=== PATIENT | female | born 1945 | race Caucasian/White ===

== ENCOUNTER 2018-12-04 09:39 | Inpatient (IN) | payer MEDICARE, OTHER ==
[~2018-12-04] VITALS: Ht 167.6 cm; Wt 59.7 kg
[2018-12-04] MEDS ORDERED: PANTOPRAZOLE 40 MG INJ IV STA (10:30)
[2018-12-04] MEDS ORDERED: SOD CHLORIDE 0.9% 0 ML IV ONE (12:18)
--- NOTE | 2018-12-04 12:22 | ERD ---
ER Documentation Chief Complaint Chief Complaint Sent by Dr. Rivera for admission for anemia and lab work HPI 73-year-old female referred in from her GI physician for evaluation of a low hemoglobin. States that over the last 6 months she has had a significant drop in her hemoglobin noted on blood work. She has no significant symptoms other than feeling "exhausted." Patient reports no chest pain or shortness of breath or palpitations. She reports no lightheadedness or syncope. She reports no abdominal pain, melena or hematemesis. ROS All systems reviewed and are negative except as per history of present illness. Allergies Allergies: Coded Allergies: No Known Allergy (Unverified , 12/04/18) PMhx/Soc History of Surgery: Yes () Anesthesia Reaction: No Hx Neurological Disorder: No Hx Respiratory Disorders: Yes (COPD) Hx Cardiac Disorders: Yes (HTN, HDL) Hx Psychiatric Problems: No Hx Miscellaneous Medical Probl: Yes (Anemia) Hx Alcohol Use: No Hx Substance Use: No Hx Tobacco Use: Yes Smoking Status: Current some day smoker FmHx Noncontributory for chief complaint Physical Exam Vitals Vital Signs Date Temp Pulse Resp B/P (MAP) Pulse Ox O2 O2 Flow FiO2 Time Delivery Rate 12/04/18 94 16 124/62 94 Nasal 2.0 12:08 (82) Cannula 12/04/18 98.2 102 18 127/81 94 09:45 (96) Physical Exam GENERAL: Pale, elderly. Female in no distress HEENT: Pupils equal, round, and reactive to light. EOMI. There is no scleral icterus. NECK: C-spine is soft and supple, there is no meningismus. There is no cervical lymphadenopathy. LUNGS: Clear to auscultation bilaterally. There are no rales, wheezes or rhonchi. HEART: Regular rate and rhythm, no murmurs, clicks, rubs or gallops. ABDOMEN: Soft, non-tender, non-distended. There are bowel sounds in all four quadrants. No rebound or guarding. EXTREMITIES: There is no peripheral cyanosis or edema. No focal swelling or erythema. NEURO: The patient moves all four extremities with 5/5 strength. Cranial nerves II - XII are intact. Normal gait. Alert and oriented SKIN: There is no apparent rash or petechiae. HEME/LYMPHATIC: There is no evidence of excessive bruising or lymphedema. PSYCHIATRIC: The patient does not appear anxious or depressed. Result Diagram: 12/04/18 1036 12/04/18 1036 Results 24 hrs Laboratory Tests Test 12/04/18 10:36 White Blood Count 7.9 10^3/ul Red Blood Count 4.06 10^6/ul Hemoglobin 7.4 g/dl Hematocrit 26.6 % Mean Corpuscular Volume 65.5 fl Mean Corpuscular Hemoglobin 18.2 pg Mean Corpuscular Hemoglobin Concent 27.8 g/dl Red Cell Distribution Width 20.6 % Platelet Count 426 10^3/UL Mean Platelet Volume 9.1 fl Immature Granulocytes % 0.500 % Neutrophils % 84.2 % Lymphocytes % 9.1 % Monocytes % 4.2 % Eosinophils % 1.7 % Basophils % 0.3 % Nucleated Red Blood Cells % 0.0 /100WBC Immature Granulocytes # 0.040 10^3/ul Neutrophils # 6.6 10^3/ul Lymphocytes # 0.7 10^3/ul Monocytes # 0.3 10^3/ul Eosinophils # 0.1 10^3/ul Basophils # 0.0 10^3/ul Nucleated Red Blood Cells # 0.0 10^3/ul Prothrombin Time 12.2 Sec Prothrombin Time Ratio 1.0 INR International Normalized Ratio 0.89 Activated Partial Thromboplast Time 25.2 Sec Sodium Level 143 mmol/L Potassium Level 3.9 mmol/L Chloride Level 104 mmol/L Carbon Dioxide Level 28 mmol/L Anion Gap 11 Blood Urea Nitrogen 13 mg/dl Creatinine 0.62 mg/dl Est Glomerular Filtrat Rate mL/min mL/min Glucose Level 146 mg/dl Calcium Level 8.7 mg/dl Total Bilirubin 0.4 mg/dl Direct Bilirubin 0.00 mg/dl Indirect Bilirubin 0.4 mg/dl Aspartate Amino Transf (AST/SGOT) 19 IU/L Alanine Aminotransferase (ALT/SGPT) 28 IU/L Alkaline Phosphatase 79 IU/L Troponin I < 0.012 ng/ml Total Protein 6.7 g/dl Albumin 3.7 g/dl Globulin 3.00 g/dl Albumin/Globulin Ratio 1.23 Current Medications Medications Dose Sig/Linda Start Time Status Last (Trade) Ordered Route PRN Stop Time Admin Dose Reason Admin 40 mg ONCE STAT 12/04/18 DC 12/04/18 Pantoprazole IV 10:30 11:51 (Protonix 12/04/18 10:31 Iv) Magnesium 300 ml ONCE ONCE 12/04/18 Citrate PO 12:30 (Citroma) 12/04/18 12:31 Sodium 0 ml @ 0 Q0M ONCE 12/04/18 DC Chloride mls/hr IV 12:18 12/04/18 12:19 Procedures/MDM Patient was taken to a room, seen and evaluated. Comfort measures were initiated. Diagnostic tests were ordered and reviewed. 3 LEAD RHYTHM STRIP: Normal sinus rhythm without ectopy EK lead EKG reviewed by myself: Normal Sinus Rhythm Normal Head Waters and intervals No ST elevation, depression, or T wave inversion Impression: Normal EKG RADIOLOGY: Reviewed with the radiologist CONSULTATION: Dr. Steele was notified for admission. Dr. Rivera was consulted for GI REEVALUATION: 1220: Diagnostic tests were appreciated discussed with the patien t. Arrangements were made for admission of the hospital. Orders were initiated per Dr. Rivera for preparation for colonoscopy and endoscopy tomorrow MEDICAL DECISION MAKIN-year-old female presents to the emergency department with what appears to be a chronic occult GI bleed. Patient is a significant anemia requiring transfusion at this time given her significantly low hemoglobin. She is not hemodynamically unstable and does not require emergent transfusion. Patient will be admitted to the hospital for transfusion, endoscopy and colonoscopy and monitoring of her hemoglobin. Departure Diagnosis: Primary Impression: Anemia Condition: SETH Brunson Dec 04, 2018 12:22
[2018-12-04] MEDS ORDERED: MAGNESIUM CITRATE 300 ML BTL PO ONE ×2 (12:30→13:00)
[2018-12-04] MEDS ORDERED: ONDANSETRON 4 MG INJ IV PRN ×2 (12:30→14:00)
[2018-12-04] MEDS ORDERED: ACETAMINOPHEN 325 MG TAB PO PRN ×2 (12:30→14:00)
[2018-12-04] MEDS ORDERED: VARE1TAB20 PO (12:38)
[2018-12-04] MEDS ORDERED: ROFL500T6 PO (12:39)
[2018-12-04] MEDS ORDERED: CLON0.5T14 PO (12:39)
[2018-12-04] MEDS ORDERED: FLUO40CA PO (12:40)
[2018-12-04] MEDS ORDERED: MONT10TA24 PO (12:40)
[2018-12-04] MEDS ORDERED: LEVO175T38 PO (12:40)
[2018-12-04] MEDS ORDERED: LOSA25TA12 PO (12:41)
[2018-12-04] MEDS ORDERED: EZET10TA31 PO (12:41)
[2018-12-04] MEDS ORDERED: CETI10TA34 PO (12:41)
[2018-12-04] MEDS ORDERED: ATOR-2 PO (12:42)
[2018-12-04] MEDS ORDERED: CYAN500T46 PO (12:45)
[2018-12-04] MEDS ORDERED: ALBU18HF INHALATION (12:46)
[2018-12-04] MEDS ORDERED: ADV50050 INHALATION (12:46)
[2018-12-04] MEDS ORDERED: GABA300C16 PO (12:49)
[2018-12-04] MEDS ORDERED: PRAM0.25 PO (12:49)
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
[2018-12-04] MEDS ORDERED: ZOLPIDEM 5 MG TAB PO PRN (14:00)
[2018-12-04] MEDS ORDERED: LORAZEPAM 0.5 MG TAB PO PRN (14:00)
[2018-12-04] MEDS ORDERED: NACL 0.9% 3 ML SYG IV SCH (14:00)
[2018-12-04] MEDS ORDERED: NITROGLYCERIN (SL) 0.4 MG TAB SL PRN (14:00)
[2018-12-04] MEDS ORDERED: ALBUTEROL 0.083% (NEB) 2.5 MG/3 ML AMP HHN PRN (14:00)
[2018-12-04] MEDS: LACTULOSE 30ML CUP PO SCH ×3 (15:32→23:04)
--- NOTE | 2018-12-04 18:03 | HP ---
Date/Time of Note Date/Time of Note DATE: 12/04/18 TIME: 17:53 Assessment/Plan VTE Prophylaxis SCD applied (from Nsg): Yes SCD contraindicated: low risk/ambulating Pharmacological prophylaxis: NA/contraindicated Pharm contraindication: bleeding Lines/Catheters IV Catheter Type (from Nrsg): Saline Lock Assessment/Plan Problems: (1) Anemia Status: Acute Comment: Low MCV so likely Fe def. Acuity is concerning for GIB. Transfuse and GI to perform upper and lower endoscopies tomorrow as per plan. (2) Hypothyroidism due to Sylwia's thyroiditis Status: Chronic Comment: Cont. LT4 daily (3) Allergic rhinitis Status: Chronic Comment: Cont. allergy therapy daily (4) Chronic obstructive pulmonary disease Status: Chronic Comment: Cont. combination steroid/LABA daily and then inhaled beta-2 agonist prn (5) Moderate persistent asthma, uncomplicated Status: Chronic Comment: no meds at this time. Monitor glucose in house w/ Novolog Alg 1 ISS (6) Type 2 diabetes mellitus with other specified complication Status: Chronic Comment: no meds at this time. Monitor glucose in house w/ Novolog Alg 1 ISS (7) Asymptomatic microscopic hematuria Status: Chronic Comment: Fully evaluated by urology. S/p cystoscopy. No evidence of disease. (8) Essential tremor Status: Chronic Comment: Cont. pramipexole, gabapentin, and clonazepam (9) Pure hypercholesterolemia Status: Chronic Comment: Cont. statin and ezetimibe (10) Recurrent major depressive disorder in partial remission Status: Chronic Comment: Cont. fluoxetine (11) Obstructive sleep apnea Status: Chronic Comment: CPAP at night. Result Diagram: 12/04/18 1036 12/04/18 1036 Results 24hrs Laboratory Tests Test 12/04/18 10:36 White Blood Count 7.9 Red Blood Count 4.06 L Hemoglobin 7.4 L Hematocrit 26.6 L Mean Corpuscular Volume 65.5 L Mean Corpuscular Hemoglobin 18.2 L Mean Corpuscular Hemoglobin Concent 27.8 L Red Cell Distribution Width 20.6 H Platelet Count 426 H Mean Platelet Volume 9.1 Immature Granulocytes % 0.500 H Neutrophils % 84.2 H Lymphocytes % 9.1 L Monocytes % 4.2 Eosinophils % 1.7 Basophils % 0.3 Nucleated Red Blood Cells % 0.0 Immature Granulocytes # 0.040 H Neutrophils # 6.6 Lymphocytes # 0.7 L Monocytes # 0.3 Eosinophils # 0.1 Basophils # 0.0 Nucleated Red Blood Cells # 0.0 Prothrombin Time 12.2 Prothrombin Time Ratio 1.0 INR International Normalized Ratio 0.89 Activated Partial Thromboplast Time 25.2 Sodium Level 143 Potassium Level 3.9 Chloride Level 104 Carbon Dioxide Level 28 Anion Gap 11 Blood Urea Nitrogen 13 Creatinine 0.62 Est Glomerular Filtrat Rate mL/min Glucose Level 146 Calcium Level 8.7 Total Bilirubin 0.4 Direct Bilirubin 0.00 Indirect Bilirubin 0.4 Aspartate Amino Transf (AST/SGOT) 19 Alanine Aminotransferase (ALT/SGPT) 28 Alkaline Phosphatase 79 Troponin I < 0.012 Total Protein 6.7 Albumin 3.7 Globulin 3.00 Albumin/Globulin Ratio 1.23 HPI/ROS Admit Date/Time Admit Date/Time 12/04/2018 @ 1400 Hx of Present Illness 73 y/o C F w/ h/o COPD/asthma, hypothyroidism, hyperlipidemia, diet-controlled T2DM, asymptomatic microscopic hematuria, essential tremor, depression, and DANISH w/ normal lab evaluation in office 5 m. ago returned following a visit to [facility]. Labs were ordered for pulmonary tests and these included CBC. Hgb found to be 7. Pt. asymptomatic other than her chronic SOB. Further questioning does reveal some JOYA. Denies melena or hematochezia. Pt. referred to GI but they felt pt. should have transfusion and in-house endoscopies. Admit today for transfusion; endoscopies tomorrow. ROS Constitutional: no complaints Eyes: no complaints ENT: no complaints Respiratory: cough, shortness of breath, wheezing Cardiovascular: lightheadedness Gastrointestinal: no complaints Genitourinary: no complaints Musculoskeletal: no complaints Skin: no complaints Neurologic: other (tremor) PMH/Family/Social Past Medical History Medical History: diabetes, high cholesterol, hypothyroid, other (COPD/asthma, asymptomatic microscopic hematuria, essential tremor, depression, and DANISH) Medications Current Medications Ondansetron HCl (Zofran Inj) 4 mg ER BRIDGE PRN IV NAUSEA/VOMITING; Start 12/04/18 at 12:30; Stop 12/05/18 at 12:29 Acetaminophen (Tylenol Tab) 650 mg ER BRIDGE PRN PO .MILD PAIN 1-3 OR TEMP; Start 12/04/18 at 12:30; Stop 12/05/18 at 12:29 Atorvastatin Calcium (Lipitor) 80 mg QHS PO ; Start 12/04/18 at 21:00 Clonazepam (Klonopin) 0.5 mg QHS PO ; Start 12/04/18 at 21:00 EZETIMIBE (Zetia) 10 mg HS PO ; Start 12/04/18 at 21:00 Fluoxetine HCl (Prozac) 40 mg DAILY PO ; Start 12/05/18 at 09:00 Gabapentin (Neurontin) 300 mg BID PO ; Start 12/04/18 at 21:00 Levothyroxine Sodium (Synthroid) 175 mcg BEFORE BREAKFAST PO ; Start 12/05/18 at 07:00 Losartan Potassium (Cozaar) 25 mg DAILY PO ; Start 12/05/18 at 09:00 Montelukast Sodium (Singulair) 10 mg QHS PO ; Start 12/04/18 at 21:00 Pramipexole (Mirapex) 0.25 mg HS PO ; Start 12/04/18 at 21:00 Roflumilast (Daliresp) 500 mcg DAILY PO ; Start 12/05/18 at 09:00 Albuterol (Proventil 0.083% (Neb)) 2.5 mg Q4H RESP THERAPY PRN HHN SHORTNESS OF BREATH; Start 12/04/18 at 14:00 Loratadine (Claritin) 10 mg DAILY PO ; Start 12/05/18 at 09:00 Fluticasone/ Vilanterol (Breo Ellipta 200-25 Mcg Inh) 1 inh DAILY INH ; Start 12/05/18 at 09:00 Potassium Chloride/Dextrose/ Sod Cl 1,000 ml @ 100 mls/hr Q10H IV ; Start 12/04/18 at 13:50 IV Flush (NS 3 ml) 3 ml PER PROTOCOL IV ; Start 12/04/18 at 14:00 Lorazepam (Ativan) 0.5 mg Q8H PRN PO .ANXIETY; Start 12/04/18 at 14:00 Ondansetron HCl (Zofran Inj) 4 mg Q6H PRN IV NAUSEA/VOMITING; Start 12/04/18 at 14:00 Nitroglycerin (Nitroglycerin (Sl Tab) 0.4 Mg) 1 tab Q5M PRN SL .CHEST PAIN; Start 12/04/18 at 14:00 Acetaminophen (Tylenol Tab) 650 mg Q6H PRN PO .PAIN 1-3 OR TEMP; Start 12/04/18 at 14:00 Zolpidem Tartrate (Ambien) 5 mg QHS PRN PO .INSOMNIA; Start 12/04/18 at 14:00 Pantoprazole (Protonix Iv) 40 mg DAILY@06 IV ; Start 12/05/18 at 06:00 Insulin Aspart (Novolog Insulin Pen) NOVOLOG *MILD* ALGORITHM WITH MEALS BEDTIME SC ; Start 12/04/18 at 18:00 Lactulose (Enulose) 20 gm Q3 PO Last administered on 12/04/18at 15:32; Admin Dose 20 GM; Start 12/04/18 at 15:00; Stop 12/05/18 at 06:00 Cyanocobalamin (Vitamin B12) 1,000 mcg DAILY PO ; Start 12/05/18 at 09:00 Coded Allergies: No Known Allergy (Unverified , 12/04/18) Past Surgical History Past Surgical Hx: other (c-sect, T&A) Family History Significant Family History: heart disease, cancer (breast), diabetes Social History joanne Gambino, 9th [facility] [employer] [facility] [employer], 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, , 7 children Alcohol Use: none Smoking Status: Former smoker Drug Use: none Exam/Review of Systems Vital Signs Vitals VS - Last 72 Hours, by Label Date Temp Pulse Resp B/P (MAP) Pulse Ox O2 O2 Flow FiO2 Time Delivery Rate 12/04/18 98.4 89 20 121/82 95 Room Air 17:25 (95) 12/04/18 91 142/68 98 Nasal 2.0 15:20 (92) Cannula 12/04/18 94 16 124/62 94 Nasal 2.0 12:08 (82) Cannula 12/04/18 98.2 102 18 127/81 94 09:45 (96) Vital Signs Date Temp Pulse Resp B/P (MAP) Pulse Ox O2 O2 Flow FiO2 Time Delivery Rate 12/04/18 98.4 89 20 121/82 95 Room Air 17:25 (95) 12/04/18 2.0 15:20 Exam Constitutional: alert, oriented, frail Psych: no complaints, nl mood/affect Eyes: nl conjunctiva, EOMI, nl lids, nl sclera, PERRL ENMT: nl external ears & nose, nl lips & teeth, mucosa pink and moist Neck: supple, non-tender; No bruits, No masses, No thyromegaly Respiratory: wheezing Cardiovascular: regular rate and rhythm, nl pulses; No edema, No murmurs/extra sounds, No rub Gastrointestinal: soft, nl liver, spleen, non-tender, bowel sounds; No mass, No rebound or guarding Musculoskeletal: nl extremities to inspection Extremities: normal pulses; No cyanosis, No clubbing, No edema Neurological: [employer] II[employer] intact, nl mental status, nl speech, nl strength, other (tremulous) ABIMAEL MARTINEZ MD Dec 04, 2018 18:03
[2018-12-04] MEDS: PRAMIPEXOLE 0.25 MG TAB PO SCH (21:00)
[2018-12-04 21:52] VITALS: PULSE 91
[2018-12-04 22:00] VITALS: BP 155/66; PULSE 78; RESP 16
[2018-12-04 22:08] VITALS: Ht 167.6 cm; Wt 59.7 kg
[2018-12-04] MEDS: INSULIN ASPART [NOVOLOG] 3 ML PEN SC SCH ×2 (23:02→23:04)
[2018-12-04] MEDS: clonAZEPAM 0.5 MG TAB PO SCH (23:03)
[2018-12-04] MEDS: EZETIMIBE 10 MG TAB PO SCH (23:03)
[2018-12-04] MEDS: MONTELUKAST 10 MG TAB PO SCH (23:04)
[2018-12-04] MEDS: GABAPENTIN 300 MG CAP PO SCH (23:04)
[2018-12-04] MEDS: ATORVASTATIN 80 MG TAB PO SCH (23:04)
[2018-12-04] MEDS: D5W-0.45 NACL + KCL 20 MEQ 1,000 ML IV SCH ×2 (23:09→23:50)
[2018-12-05] VITALS (23 sets, daily range): BP systolic 93–170; BP diastolic 44–90; PULSE 74–190; RESP 16–20
[2018-12-05] MEDS: LACTULOSE 30ML CUP PO SCH ×3 (02:47→05:46)
[2018-12-05] MEDS ORDERED: PANTOPRAZOLE 40 MG INJ IV SCH (06:00)
[2018-12-05] MEDS: LEVOTHYROXINE 175 MCG TAB PO SCH (07:00)
[2018-12-05] MEDS: ROFLUMILAST 500 MCG TABLET PO SCH (08:03)
[2018-12-05] MEDS: LORATADINE 10 MG TAB PO SCH (08:03)
[2018-12-05] MEDS: GABAPENTIN 300 MG CAP PO SCH ×2 (08:03→21:26)
[2018-12-05] MEDS: FAMOTIDINE 20 MG INJ IV SCH (08:03)
[2018-12-05] MEDS: LOSARTAN 25 MG TAB PO SCH (08:03)
[2018-12-05] MEDS: FLUOXETINE 20 MG CAP PO SCH (08:03)
[2018-12-05] MEDS: FLUTICASONE/VILANTEROL 200-25 INH DEVICE INH SCH (08:03)
[2018-12-05] MEDS: CYANOCOBALAMIN 500 MCG TAB PO SCH (08:03)
[2018-12-05] MEDS: INSULIN ASPART [NOVOLOG] 3 ML PEN SC SCH ×4 (08:11→21:00)
[2018-12-05] MEDS ORDERED: CYANOCOBALAMIN 500 MCG TAB PO SCH (09:00)
[2018-12-05] MEDS ORDERED: SOD CHLORIDE 0.9% 250 ML IV* ONE (10:37)
[2018-12-05] MEDS: D5W-0.45 NACL + KCL 20 MEQ 1,000 ML IV SCH ×2 (10:44→21:27)
--- NOTE | 2018-12-05 13:56 | PREAC ---
Date/Time of Note Date/Time of Note DATE: 12/05/18 TIME: 13:55 Anesthesia Eval and Record Evaluation Time Pre-Procedure Interview DATE: 12/05/18 TIME: 13:55 Age 73 Sex female NPO: 8 hrs Preoperative diagnosis ANEMIA Planned procedure EGD AND COLON Past Medical History Past Medical History: Includes Endo: Diabetes, Hypothyroid Pulm: COPD, Sleep Apnea Heme: Anemia Surgery & Anesthesia Issues No known issue Meds Anticoagulation: No Beta Britney within 24 hr: No Reason Beta Britney not given: Pt. not on B-Britney Reported Medications Gabapentin* (Gabapentin*) 300 Mg Capsule, 300 MG PO BID, #60 CAP 12/04/18 Pramipexole* (Pramipexole*) 0.25 Mg Tablet, 0.25 MG PO HS, TAB 12/04/18 Albuterol Sulfate* (Ventolin HFA*) 18 Gm Hfa.aer.ad, 2 PUFF INHALATION Q4H, #1 INHALER 12/04/18 Salmeterol Xinaf-Fluticasone* (Advair*) 500/50 Diskus Inhaler, 1 INH INHALATION BID, #1 INHALER 12/04/18 Cyanocobalamin* (Vitamin B12*) 500 Mcg Tab, 5000 MCG PO DAILY, TAB 12/04/18 Atorvastatin* (Atorvastatin*) 80 Mg Tablet, 80 MG PO QHS, #30 TAB 12/04/18 Cetirizine Hcl* (Cetirizine Hcl*) 10 Mg Tab.chew, 10 MG PO DAILY, #30 TAB 12/04/18 Losartan Potassium* (Losartan Potassium*) 25 Mg Tablet, 25 MG PO DAILY, TAB 12/04/18 Ezetimibe* (Zetia*) 10 Mg Tablet, 10 MG PO HS, TAB 12/04/18 Fluoxetine Hcl* (Fluoxetine Hcl*) 40 Mg Capsule, 40 MG PO DAILY, CAP 12/04/18 Levothyroxine Sodium* (Levoxyl*) 175 Mcg Tablet, 175 MCG PO BEFORE BREAKFAST, #30 TAB 12/04/18 Montelukast Sodium* (Montelukast Sodium*) 10 Mg Tablet, 10 MG PO QHS, #30 TAB 12/04/18 Roflumilast (Daliresp) 500 Mcg Tablet, 500 MCG PO DAILY, TAB 12/04/18 Clonazepam* (Clonazepam*) 0.5 Mg Tablet, 0.5 MG PO QHS, TAB 12/04/18 Varenicline Tartrate (Chantix) 1 Mg Tablet, 1 MG PO BID, TAB 12/04/18 Current Medications Atorvastatin Calcium (Lipitor) 80 mg QHS PO Last administered on 12/04/18at 23:04; Admin Dose 80 MG; Start 12/04/18 at 21:00 Clonazepam (Klonopin) 0.5 mg QHS PO Last administered on 12/04/18at 23:03; Admin Dose 0.5 MG; Start 12/04/18 at 21:00 EZETIMIBE (Zetia) 10 mg HS PO Last administered on 12/04/18 23:03; Admin Dose 10 MG; Start 12/04/18 at 21:00 Fluoxetine HCl (Prozac) 40 mg DAILY PO ; Start 12/05/18 at 09:00 Gabapentin (Neurontin) 300 mg BID PO Last administered on 12/04/18at 23:04; Admin Dose 300 MG; Start 12/04/18 at 21:00 Levothyroxine Sodium (Synthroid) 175 mcg BEFORE BREAKFAST PO ; Start 12/05/18 at 07:00 Losartan Potassium (Cozaar) 25 mg DAILY PO ; Start 12/05/18 at 09:00 Montelukast Sodium (Singulair) 10 mg QHS PO Last administered on 12/04/18at 23:04; Admin Dose 10 MG; Start 12/04/18 at 21:00 Pramipexole (Mirapex) 0.25 mg HS PO ; Start 12/04/18 at 21:00 Roflumilast (Daliresp) 500 mcg DAILY PO ; Start 12/05/18 at 09:00 Albuterol (Proventil 0.083% (Neb)) 2.5 mg Q4H RESP THERAPY PRN HHN SHORTNESS OF BREATH Last administered on 12/05/18 13:25; Admin Dose 2.5 MG; Start 12/04/18 at 14:00 Loratadine (Claritin) 10 mg DAILY PO ; Start 12/05/18 at 09:00 Fluticasone/ Vilanterol (Breo Ellipta 200-25 Mcg Inh) 1 inh DAILY INH Last administered on 12/05/18at 08:03; Admin Dose 1 INH; Start 12/05/18 at 09:00 Potassium Chloride/Dextrose/ Sod Cl 1,000 ml @ 100 mls/hr Q10H IV Last administered on 12/05/18at 10:44; Admin Dose 100 MLS/HR; Start 12/04/18 at 13:50 IV Flush (NS 3 ml) 3 ml PER PROTOCOL IV ; Start 12/04/18 at 14:00 Lorazepam (Ativan) 0.5 mg Q8H PRN PO .ANXIETY; Start 12/04/18 at 14:00 Ondansetron HCl (Zofran Inj) 4 mg Q6H PRN IV NAUSEA/VOMITING; Start 12/04/18 at 14:00 Nitroglycerin (Nitroglycerin (Sl Tab) 0.4 Mg) 1 tab Q5M PRN SL .CHEST PAIN; Start 12/04/18 at 14:00 Acetaminophen (Tylenol Tab) 650 mg Q6H PRN PO .PAIN 1-3 OR TEMP; Start 12/04/18 at 14:00 Zolpidem Tartrate (Ambien) 5 mg QHS PRN PO .INSOMNIA; Start 12/04/18 at 14:00 Insulin Aspart (Novolog Insulin Pen) NOVOLOG *MILD* ALGORITHM WITH MEALS BEDTIME SC Last administered on 12/05/18at 08:11; Admin Dose 1 UNIT; Start 12/04/18 at 18:00 Cyanocobalamin (Vitamin B12) 1,000 mcg DAILY PO ; Start 12/05/18 at 09:00 Famotidine (Pepcid Iv) 20 mg DAILY IV Last administered on 12/05/18at 08:03; Admin Dose 20 MG; Start 12/05/18 at 09:00 Miscellaneous Information (* Miscellaneous Pharmacy Order) 1 ea DAILY XX ; Start 12/05/18 at 09:00; Status UNV Meds reviewed: Yes Allergies Coded Allergies: No Known Allergy (Unverified , 12/04/18) Allergies Reviewed: Yes Labs/Studies Labs Reviewed: Reviewed by anesthesiologist Result Diagram: 12/05/1819 12/04/18 1036 Laboratory Tests 12/05/18 05:19 test: N/A Studies: ECG, CXR Pre-procedure Exam Last vitals Vital Signs Date Temp Pulse Resp B/P (MAP) Pulse Ox O2 O2 Flow FiO2 Time Delivery Rate 6/13/19 97.9 89 20 133/64 97 11:01 (87) 12/05/18 2.0 27 08:28 12/05/18 BIPAP 07:20 Airway: Adequate mouth opening, Adequate thyromental dist Mallampati: Mallampati II Teeth: Normal Lung: Normal Heart: Normal ASA Physical Status ASA physical status: 2 Emergency: None Planned Anesthetic General/MAC: MAC Planned Pain Management Parenteral pain med Pre-operative Attestations Prior to commencing anesthesia and surgery, the patient was re-evaluated, there was verification of: *The patient's identity *The results of appropriate recent lab work and preoperative vital signs *The above evaluation not changing prior to induction *Anesthetic plan, risk benefits, alternative and complications discussed with patient/family; questions answered; patient/family understands, accepts and wishes to proceed. OSIRIS GUSMAN Dec 05, 2018 13:56
[2018-12-05] MEDS ORDERED: LIDOCAINE 2% (SDV) 5 ML INJ ONE (13:58)
[2018-12-05] MEDS ORDERED: PROPOFOL 60 ML ONE (13:58)
[2018-12-05] MEDS ORDERED: hydrALAzine 20 MG INJ IV PRN (14:00)
[2018-12-05] MEDS ORDERED: FENTAnyl 50 MCG/ML VIAL IV PRN (14:00)
[2018-12-05] MEDS ORDERED: EPHEDrine 25 MG/5 ML SYG IV PRN (14:00)
[2018-12-05] MEDS ORDERED: ALBUTEROL 0.083% (NEB) 2.5 MG/3 ML AMP HHN PRN (14:00)
[2018-12-05] MEDS ORDERED: ONDANSETRON 4 MG INJ IV PRN (14:00)
--- NOTE | 2018-12-05 15:34 | PAC ---
Date/Time of Note Date/Time of Note DATE: 12/05/18 TIME: 15:33 Post-Anesthesia Notes Post-Anesthesia Note Last documented vital signs Vital Signs Date Temp Pulse Resp B/P (MAP) Pulse Ox O2 O2 Flow FiO2 Time Delivery Rate 12/05/18 97.1 19 93/44 (60) 96 Nasal 3.0 1534 Cannula 12/05/18 89 11:01 12/05/18 27 08:28 Activity: WNL Respiratory function: WNL Cardiovascular function: WNL Mental status: Baseline Pain reasonably controlled: Yes Hydration appropriate: Yes Nausea/Vomiting absent: Yes OSIRIS GUSMAN Dec 05, 2018 15:34
[2018-12-05] MEDS: FLUCONAZOLE 100 MG TAB GTB SCH (17:48)
--- NOTE | 2018-12-05 17:51 | CONS ---
Assessment/Plan Assessment/Plan Hospital Course (Demo Recall) Ms. Becker is a 73 y/o s/p colonoscopy to work up anemia and this revealed an ascending colon tumor. I explained to her that she will likely need surgery to remove the portion of colon that contains the tumor, but that she would need to complete her workup prior to this. Assessment/Plan (Daily) 1. Await path result, suspected colon cancer 2. If cancer, patient will need staging CT scan of chest, abdomen, pelvis and CEA level 3. Please have her visit me as an outpatient to discuss details of surgery and for elective surgical scheduling. Consultation Date/Type/Reason Admit Date/Time 12/04/2018 @ 1400 Date of Consultation: Dec 05, 2018 Type of Consult Colorectal Surgery Reason for Consultation Ascending colon mass Requesting Provider: ABIMAEL MARTINEZ MD Date/Time of Note DATE: 12/05/18 TIME: 17:31 Hx of Present Illness Ms. Becker was recently found to be anemic on a routine CBC and was admitted f or a blood transfusion and EGD/Colonoscopy by Dr. Rivera. This was performed today and it revealed a large ascending colon tumor, suspicious for malignancy. Prior to this, she denies any blood in her stool or dark bowel movements. She currently has no complaints, resting comfortably in her hospital bed. Eyes: no complaints ENT: no complaints Respiratory: shortness of breath (with exersion) Cardiovascular: no complaints Genitourinary: no complaints Musculoskeletal: no complaints Skin: no complaints Neurologic: no complaints Psychological: no complaints Past Medical History Medical History: diabetes, high cholesterol, hypothyroid, other (COPD/asthma, asymptomatic microscopic hematuria, essential tremor, depression, and DANISH) Home Meds Reported Medications Gabapentin* (Gabapentin*) 300 Mg Capsule, 300 MG PO BID, #60 CAP 12/04/18 Pramipexole* (Pramipexole*) 0.25 Mg Tablet, 0.25 MG PO HS, TAB 12/04/18 Albuterol Sulfate* (Ventolin HFA*) 18 Gm Hfa.aer.ad, 2 PUFF INHALATION Q4H, #1 INHALER 12/04/18 Salmeterol Xinaf-Fluticasone* (Advair*) 500/50 Diskus Inhaler, 1 INH INHALATION BID, #1 INHALER 12/04/18 Cyanocobalamin* (Vitamin B12*) 500 Mcg Tab, 5000 MCG PO DAILY, TAB 12/04/18 Atorvastatin* (Atorvastatin*) 80 Mg Tablet, 80 MG PO QHS, #30 TAB 12/04/18 Cetirizine Hcl* (Cetirizine Hcl*) 10 Mg Tab.chew, 10 MG PO DAILY, #30 TAB 12/04/18 Losartan Potassium* (Losartan Potassium*) 25 Mg Tablet, 25 MG PO DAILY, TAB 12/04/18 Ezetimibe* (Zetia*) 10 Mg Tablet, 10 MG PO HS, TAB 12/04/18 Fluoxetine Hcl* (Fluoxetine Hcl*) 40 Mg Capsule, 40 MG PO DAILY, CAP 12/04/18 Levothyroxine Sodium* (Levoxyl*) 175 Mcg Tablet, 175 MCG PO BEFORE BREAKFAST, #30 TAB 12/04/18 Montelukast Sodium* (Montelukast Sodium*) 10 Mg Tablet, 10 MG PO QHS, #30 TAB 12/04/18 Roflumilast (Daliresp) 500 Mcg Tablet, 500 MCG PO DAILY, TAB 12/04/18 Clonazepam* (Clonazepam*) 0.5 Mg Tablet, 0.5 MG PO QHS, TAB 12/04/18 Varenicline Tartrate (Chantix) 1 Mg Tablet, 1 MG PO BID, TAB 12/04/18 Medications Current Medications Atorvastatin Calcium (Lipitor) 80 mg QHS PO Last administered on 12/04/18at 23:04; Admin Dose 80 MG; Start 12/04/18 at 21:00 Clonazepam (Klonopin) 0.5 mg QHS PO Last administered on 12/04/18at 23:03; Admin Dose 0.5 MG; Start 12/04/18 at 21:00 EZETIMIBE (Zetia) 10 mg HS PO Last administered on 12/04/18at 23:03; Admin Dose 10 MG; Start 12/04/18 at 21:00 Fluoxetine HCl (Prozac) 40 mg DAILY PO ; Start 12/05/18 at 09:00 Gabapentin (Neurontin) 300 mg BID PO Last administered on 12/04/18at 23:04; Admin Dose 300 MG; Start 12/04/18 at 21:00 Levothyroxine Sodium (Synthroid) 175 mcg BEFORE BREAKFAST PO ; Start 12/05/18 at 07:00 Losartan Potassium (Cozaar) 25 mg DAILY PO ; Start 12/05/18 at 09:00 Montelukast Sodium (Singulair) 10 mg QHS PO Last administered on 12/04/18at 23:04; Admin Dose 10 MG; Start 12/04/18 at 21:00 Pramipexole (Mirapex) 0.25 mg HS PO ; Start 12/04/18 at 21:00 Roflumilast (Daliresp) 500 mcg DAILY PO ; Start 12/05/18 at 09:00 Albuterol (Proventil 0.083% (Neb)) 2.5 mg Q4H RESP THERAPY PRN HHN SHORTNESS OF BREATH Last administered on 12/05/18at 13:25; Admin Dose 2.5 MG; Start 12/04/18 at 14:00 Loratadine (Claritin) 10 mg DAILY PO ; Start 12/05/18 at 09:00 Fluticasone/ Vilanterol (Breo Ellipta 200-25 Mcg Inh) 1 inh DAILY INH Last administered on 12/05/18at 08:03; Admin Dose 1 INH; Start 12/05/18 at 09:00 Potassium Chloride/Dextrose/ Sod Cl 1,000 ml @ 100 mls/hr Q10H IV Last administered on 12/05/18at 10:44; Admin Dose 100 MLS/HR; Start 12/04/18 at 13:50 IV Flush (NS 3 ml) 3 ml PER PROTOCOL IV ; Start 12/04/18 at 14:00 Lorazepam (Ativan) 0.5 mg Q8H PRN PO .ANXIETY; Start 12/04/18 at 14:00 Ondansetron HCl (Zofran Inj) 4 mg Q6H PRN IV NAUSEA/VOMITING; Start 12/04/18 at 14:00 Nitroglycerin (Nitroglycerin (Sl Tab) 0.4 Mg) 1 tab Q5M PRN SL .CHEST PAIN; Start 12/04/18 at 14:00 Acetaminophen (Tylenol Tab) 650 mg Q6H PRN PO .PAIN 1-3 OR TEMP; Start 12/04/18 at 14:00 Zolpidem Tartrate (Ambien) 5 mg QHS PRN PO .INSOMNIA; Start 12/04/18 at 14:00 Insulin Aspart (Novolog Insulin Pen) NOVOLOG *MILD* ALGORITHM WITH MEALS BEDTIME SC Last administered on 12/05/18at 08:11; Admin Dose 1 UNIT; Start 12/04/18 at 18:00 Cyanocobalamin (Vitamin B12) 1,000 mcg DAILY PO ; Start 12/05/18 at 09:00 Famotidine (Pepcid Iv) 20 mg DAILY IV Last administered on 12/05/18at 08:03; Admin Dose 20 MG; Start 12/05/18 at 09:00 Miscellaneous Information (* Miscellaneous Pharmacy Order) 1 ea DAILY XX ; St art 12/05/18 at 09:00; Status UNV Fentanyl (Sublimaze) 25 mcg PACU ORDER PRN IV MILD PAIN 1-3; Start 12/05/18 at 14:00; Stop 12/05/18 at 20:00 Ondansetron HCl (Zofran Inj) 4 mg PACU ORDER PRN IV NAUSEA/VOMITING; Start 12/05/18 at 14:00; Stop 12/05/18 at 20:00 Hydralazine HCl (Apresoline) 5 mg PACU ORDER PRN IV HIGH BLOOD PRESSURE; Start 12/05/18 at 14:00; Stop 12/05/18 at 20:00 Ephedrine Sulfate 5 mg PACU ORDER PRN IV BLOOD PRESSURE SUPPORT; Start 12/05/18 at 14:00; Stop 12/05/18 at 20:00 Albuterol (Proventil 0.083% (Neb)) 2.5 mg PACU ORDER PRN HHN .WHEEZING; Start 12/05/18 at 14:00; Stop 12/05/18 at 20:00 Fluconazole (Diflucan) 100 mg DAILY GTB ; Start 12/06/18 at 09:00; Status UNV Allergies: Coded Allergies: No Known Allergy (Unverified , 12/04/18) Past Surgical History Past Surgical Hx: other (c-sect, T&A) Social History Alcohol Use: none Smoking Status: Current some day smoker Drug Use: none Exam/Review of Systems Exam Vitals Vital Signs Date Temp Pulse Resp B/P (MAP) Pulse Ox O2 O2 Flow FiO2 Time Delivery Rate 12/05/18 98.0 74 20 165/74 96 Nasal 16:19 (104) Cannula 12/05/18 3.0 16:03 12/05/18 27 13:25 Intake and Output 12/04/18 12/04/18 12/05/18 1515:00 23:00 07:00 IntakeIntake Total 850 ml 50 ml BalanceBalance 850 ml 50 ml Constitutional: alert, oriented, well developed Psych: no complaints, nl mood/affect Head: normocephalic, atraumatic Eyes: nl conjunctiva, EOMI, nl lids, nl sclera, PERRL ENMT: nl external ears & nose, nl lips & teeth, mucosa pink and moist Neck: supple, non-tender Respiratory: clear to auscultation, normal air movement Cardiovascular: regular rate and rhythm, nl pulses Gastrointestinal: soft, nl liver, spleen, non-tender Musculoskeletal: nl extremities to inspection Extremities: normal pulses Neurological: nl mental status Skin: nl turgor; No rash or lesions Results Result Diagram: 12/05/18 0519 12/04/18 1036 Results 24hrs Laboratory Tests Test 12/04/18 23:01 12/05/18 05:19 12/05/18 07:56 12/05/18 12:04 Bedside Glucose 172 145 135 White Blood Count 5.9 # Red Blood Count 3.74 L Hemoglobin 7.2 L Hematocrit 25.1 L Mean Corpuscular 67.1 L Volume Mean Corpuscular 19.3 L Hemoglobin Mean Corpuscular 28.7 L Hemoglobin Concent Red Cell 21.5 H Distribution Width Platelet Count 355 Mean Platelet Volume 9.4 Immature 0.300 Granulocytes % Neutrophils % 63.4 Lymphocytes % 23.6 Monocytes % 8.8 Eosinophils % 3.4 Basophils % 0.5 Nucleated Red Blood 0.0 Cells % Immature 0.020 Granulocytes # Neutrophils # 3.8 Lymphocytes # 1.4 Monocytes # 0.5 Eosinophils # 0.2 Basophils # 0.0 Nucleated Red Blood 0.0 Cells # Hemoglobin A1c 6.8 H Test 12/05/18 17:08 Bedside Glucose 126 Medications Medication Current Medications Atorvastatin Calcium (Lipitor) 80 mg QHS PO Last administered on 12/04/18at 23: 04; Admin Dose 80 MG; Start 12/04/18 at 21:00 Clonazepam (Klonopin) 0.5 mg QHS PO Last administered on 12/04/18at 23:03; Admin Dose 0.5 MG; Start 12/04/18 at 21:00 EZETIMIBE (Zetia) 10 mg HS PO Last administered on 12/04/18at 23:03; Admin Dose 10 MG; Start 12/04/18 at 21:00 Fluoxetine HCl (Prozac) 40 mg DAILY PO ; Start 12/05/18 at 09:00 Gabapentin (Neurontin) 300 mg BID PO Last administered on 12/04/18at 23:04; Admin Dose 300 MG; Start 12/04/18 at 21:00 Levothyroxine Sodium (Synthroid) 175 mcg BEFORE BREAKFAST PO ; Start 12/05/18 at 07:00 Losartan Potassium (Cozaar) 25 mg DAILY PO ; Start 12/05/18 at 09:00 Montelukast Sodium (Singulair) 10 mg QHS PO Last administered on 12/04/18at 23:04; Admin Dose 10 MG; Start 12/04/18 at 21:00 Pramipexole (Mirapex) 0.25 mg HS PO ; Start 12/04/18 at 21:00 Roflumilast (Daliresp) 500 mcg DAILY PO ; Start 12/05/18 at 09:00 Albuterol (Proventil 0.083% (Neb)) 2.5 mg Q4H RESP THERAPY PRN HHN SHORTNESS OF BREATH Last administered on 12/05/18at 13:25; Admin Dose 2.5 MG; Start 12/04/18 at 14:00 Loratadine (Claritin) 10 mg DAILY PO ; Start 12/05/18 at 09:00 Fluticasone/ Vilanterol (Breo Ellipta 200-25 Mcg Inh) 1 inh DAILY INH Last administered on 12/05/18at 08:03; Admin Dose 1 INH; Start 12/05/18 at 09:00 Potassium Chloride/Dextrose/ Sod Cl 1,000 ml @ 100 mls/hr Q10H IV Last administered on 12/05/18at 10:44; Admin Dose 100 MLS/HR; Start 12/04/18 at 13:50 IV Flush (NS 3 ml) 3 ml PER PROTOCOL IV ; Start 12/04/18 at 14:00 Lorazepam (Ativan) 0.5 mg Q8H PRN PO .ANXIETY; Start 12/04/18 at 14:00 Ondansetron HCl (Zofran Inj) 4 mg Q6H PRN IV NAUSEA/VOMITING; Start 12/04/18 at 14:00 Nitroglycerin (Nitroglycerin (Sl Tab) 0.4 Mg) 1 tab Q5M PRN SL .CHEST PAIN; Start 12/04/18 at 14:00 Acetaminophen (Tylenol Tab) 650 mg Q6H PRN PO .PAIN 1-3 OR TEMP; Start 12/04/18 at 14:00 Zolpidem Tartrate (Ambien) 5 mg QHS PRN PO .INSOMNIA; Start 12/04/18 at 14:00 Insulin Aspart (Novolog Insulin Pen) NOVOLOG *MILD* ALGORITHM WITH MEALS BEDTIME SC Last administered on 12/05/18at 08:11; Admin Dose 1 UNIT; Start 12/04/18 at 18:00 Cyanocobalamin (Vitamin B12) 1,000 mcg DAILY PO ; Start 12/05/18 at 09:00 Famotidine (Pepcid Iv) 20 mg DAILY IV Last administered on 12/05/18at 08:03; Admin Dose 20 MG; Start 12/05/18 at 09:00 Miscellaneous Information (* Miscellaneous Pharmacy Order) 1 ea DAILY XX ; Start 12/05/18 at 09:00; Status UNV Fentanyl (Sublimaze) 25 mcg PACU ORDER PRN IV MILD PAIN 1-3; Start 12/05/18 at 14:00; Stop 12/05/18 at 20:00 Ondansetron HCl (Zofran Inj) 4 mg PACU ORDER PRN IV NAUSEA/VOMITING; Start 12/05/18 at 14:00; Stop 12/05/18 at 20:00 Hydralazine HCl (Apresoline) 5 mg PACU ORDER PRN IV HIGH BLOOD PRESSURE; Start 12/05/18 at 14:00; Stop 12/05/18 at 20:00 Ephedrine Sulfate 5 mg PACU ORDER PRN IV BLOOD PRESSURE SUPPORT; Start 12/05/18 at 14:00; Stop 12/05/18 at 20:00 Albuterol (Proventil 0.083% (Neb)) 2.5 mg PACU ORDER PRN HHN .WHEEZING; Start 12/05/18 at 14:00; Stop 12/05/18 at 20:00 Fluconazole (Diflucan) 100 mg DAILY GTB ; Start 12/06/18 at 09:00; Status UNV JAKE BEAL MD Dec 05, 2018 17:46
--- NOTE | 2018-12-05 17:59 | PN ---
Date/Time of Note Date/Time of Note DATE: 12/05/18 TIME: 17:50 Assessment/Plan VTE Prophylaxis Risk score (from Ns)>0 risk: 2 SCD applied (from Ns): Yes SCD contraindicated: low risk/ambulating Pharmacological prophylaxis: NA/contraindicated Pharm contraindication: bleeding Lines/Catheters IV [facility] Peripheral IV Assessment/Plan Problems: (1) Anemia Status: Acute Comment: Failed to improve following initial transfusion. Will transfuse another 1 unit PRBC and recheck tomorrow. GI evaluation yielded diagnoses of adenoCA colon and candidal esophagitis. (2) Adenocarcinoma of colon Status: Acute Comment: New diagnosis based on colonoscopy results. Pathology pending but GI nearly certain this represents colon CA. Colorectal surgery consultation w/ Dr. Keenan. CT C/A/P for staging. Then will call onc consult. Check CEA. (3) Candidal esophagitis Status: Acute Comment: Fluconazole ordered by GI (4) Supraventricular tachycardia Status: Acute Comment: 6 minute run although pt. asymptomatic. Cardiology consult. Possibly exacerbated by albuterol (pt. also on LABA). Will change albuterol to xopenex. 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 LT4 (6) Allergic rhinitis Status: Chronic Comment: Cont. loratadine (7) Chronic obstructive pulmonary disease Status: Chronic Comment: Cont. steroid/LABA combo. Cont. daliresp. Change albuterol to xope nex. (8) Moderate persistent asthma, uncomplicated Status: Chronic Comment: Cont. steroid/LABA combo. Cont. daliresp. Change albuterol to xopenex. (9) Type 2 diabetes mellitus with other specified complication Status: Chronic Comment: So far glucose in goal range w/o meds. Will follow as diet advanced. A1c at goal. (10) Essential tremor Status: Chronic Comment: Cont. gabapentin and pramipexole (11) Pure hypercholesterolemia Status: Chronic Comment: Cont. 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 fluoxetine (13) Obstructive sleep apnea Status: Chronic Comment: Cont. CPAP O/N Result Diagram: 12/05/18 0519 12/04/18 1036 Results 24hrs Laboratory Tests Test 12/04/18 23:01 12/05/18 05:19 12/05/18 07:56 12/05/18 12:04 Bedside Glucose 172 145 135 White Blood Count 5.9 # Red Blood Count 3.74 L Hemoglobin 7.2 L Hematocrit 25.1 L Mean Corpuscular 67.1 L Volume Mean Corpuscular 19.3 L Hemoglobin Mean Corpuscular 28.7 L Hemoglobin Concent Red Cell 21.5 H Distribution Width Platelet Count 355 Mean Platelet Volume 9.4 Immature 0.300 Granulocytes % Neutrophils % 63.4 Lymphocytes % 23.6 Monocytes % 8.8 Eosinophils % 3.4 Basophils % 0.5 Nucleated Red Blood 0.0 Cells % Immature 0.020 Granulocytes # Neutrophils # 3.8 Lymphocytes # 1.4 Monocytes # 0.5 Eosinophils # 0.2 Basophils # 0.0 Nucleated Red Blood 0.0 Cells # Hemoglobin A1c 6.8 H Test 12/05/18 17:08 Bedside Glucose 126 Subjective 24 Hr Interval Summary Constitutional: No no complaints (feels weak) Respiratory: no complaints Cardiovascular: no complaints Gastrointestinal: no complaints Genitourinary: no complaints Musculoskeletal: no complaints Neurologic: no complaints Exam/Review of Systems Exam Vitals VS - Last 72 Hours, by Label Date Temp Pulse Resp B/P (MAP) Pulse Ox O2 O2 Flow FiO2 Time Delivery Rate 12/05/18 98.0 74 20 165/74 96 Nasal 16:19 (104) Cannula 12/05/18 154/62 98 Nasal 3.0 16:03 (92) Cannula 12/05/18 81 16:00 12/05/18 157/62 99 Nasal 3.0 15:58 (93) Cannula 12/05/18 157/59 98 Nasal 3.0 15:53 (91) Cannula 12/05/18 149/90 99 Nasal 3.0 15:48 (109) Cannula 12/05/18 170/85 96 Nasal 3.0 15:43 (113) Cannula 12/05/18 149/79 96 Nasal 3.0 15:38 (102) Cannula 12/05/18 151/60 96 Nasal 3.0 15:31 (90) Cannula 12/05/18 98.2 81 17 151/65 96 Nasal 3.0 15:26 (93) Cannula 12/05/18 97.1 19 93/44 (60) 96 Nasal 3.0 14:10 Cannula 12/05/18 88 16 98 Nasal 27 13:25 Cannula 12/05/18 190 12:03 12/05/18 101 12:00 12/05/18 97.9 89 20 133/64 97 11:01 (87) 12/05/18 96 2.0 27 08:28 12/05/18 82 08:00 12/05/18 97.4 80 20 123/59 96 BIPAP 07:20 (80) 12/05/18 84 98 30 05:13 12/05/18 98.6 82 18 116/60 94 04:47 (78) 12/05/18 2.0 04:33 12/05/18 79 04:00 12/05/18 89 97 30 02:12 12/05/18 98.3 86 16 118/56 96 00:51 (76) 12/05/18 97 00:00 12/04/18 Nasal 2.0 23:53 Cannula 12/04/18 98.2 78 16 155/66 94 22:00 (95) 12/04/18 91 21:52 12/04/18 88 18 134/105 100 Room Air 21:39 (115) 12/04/18 98.4 89 20 121/82 95 Room Air 17:25 (95) 12/04/18 91 142/68 98 Nasal 2.0 15:20 (92) Cannula 12/04/18 94 16 124/62 94 Nasal 2.0 12:08 (82) Cannula 12/04/18 98.2 102 18 127/81 94 09:45 (96) Vital Signs Date Temp Pulse Resp B/P (MAP) Pulse Ox O2 O2 Flow FiO2 Time Delivery Rate 12/05/18 98.0 74 20 165/74 96 Nasal 16:19 (104) Cannula 12/05/18 3.0 16:03 12/05/18 27 13:25 Intake and Output 12/04/18 12/04/18 12/05/18 1414:59 22:59 06:59 IntakeIntake Total 850 ml 50 ml BalanceBalance 850 ml 50 ml Constitutional: alert, oriented, well developed Psych: no complaints, nl mood/affect Respiratory: clear to auscultation, normal air movement Cardiovascular: regular rate and rhythm, nl pulses; No edema, No murmurs/extra sounds, No rub Gastrointestinal: soft, nl liver, spleen, non-tender, bowel sounds; No mass, No rebound or guarding Musculoskeletal: nl extremities to inspection Extremities: normal pulses; No cyanosis, No clubbing, No edema Neurological: [employer] II-XII intact, nl mental status, nl speech, nl strength Additional Comments Bedside Glucose - 72 Hours Test 12/04/18 23:01 12/05/18 07:56 12/05/18 12:04 12/05/18 17:08 Bedside 172 145 135 126 Glucose mg/dL (70-220) mg/dL (70-220) mg/dL (70-220) mg/dL (70-220) Results Results 24hrs Laboratory Tests Test 12/04/18 23:01 12/05/18 05:19 12/05/18 07:56 12/05/18 12:04 Bedside Glucose 172 145 135 White Blood Count 5.9 # Red Blood Count 3.74 L Hemoglobin 7.2 L Hematocrit 25.1 L Mean Corpuscular 67.1 L Volume Mean Corpuscular 19.3 L Hemoglobin Mean Corpuscular 28.7 L Hemoglobin Concent Red Cell 21.5 H Distribution Width Platelet Count 355 Mean Platelet Volume 9.4 Immature 0.300 Granulocytes % Neutrophils % 63.4 Lymphocytes % 23.6 Monocytes % 8.8 Eosinophils % 3.4 Basophils % 0.5 Nucleated Red Blood 0.0 Cells % Immature 0.020 Granulocytes # Neutrophils # 3.8 Lymphocytes # 1.4 Monocytes # 0.5 Eosinophils # 0.2 Basophils # 0.0 Nucleated Red Blood 0.0 Cells # Hemoglobin A1c 6.8 H Test 12/05/18 17:08 Bedside Glucose 126 Medications Medication Current Medications Atorvastatin Calcium (Lipitor) 80 mg QHS PO Last administered on 12/04/18at 23:04; Admin Dose 80 MG; Start 12/04/18 at 21:00 Clonazepam (Klonopin) 0.5 mg QHS PO Last administered on 12/04/18 23:03; Admin Dose 0.5 MG; Start 12/04/18 at 21:00 EZETIMIBE (Zetia) 10 mg HS PO Last administered on 12/04/18at 23:03; Admin Dose 10 MG; Start 12/04/18 at 21:00 Fluoxetine HCl (Prozac) 40 mg DAILY PO ; Start 12/05/18 at 09:00 Gabapentin (Neurontin) 300 mg BID PO Last administered on 12/04/18at 23:04; Admin Dose 300 MG; Start 12/04/18 at 21:00 Levothyroxine Sodium (Synthroid) 175 mcg BEFORE BREAKFAST PO ; Start 12/05/18 at 07:00 Losartan Potassium (Cozaar) 25 mg DAILY PO ; Start 12/05/18 at 09:00 Montelukast Sodium (Singulair) 10 mg QHS PO Last administered on 12/04/18at 23: 04; Admin Dose 10 MG; Start 12/04/18 at 21:00 Pramipexole (Mirapex) 0.25 mg HS PO ; Start 12/04/18 at 21:00 Roflumilast (Daliresp) 500 mcg DAILY PO ; Start 12/05/18 at 09:00 Albuterol (Proventil 0.083% (Neb)) 2.5 mg Q4H RESP THERAPY PRN HHN SHORTNESS OF BREATH Last administered on 12/05/18at 13:25; Admin Dose 2.5 MG; Start 12/04/18 at 14:00 Loratadine (Claritin) 10 mg DAILY PO ; Start 12/05/18 at 09:00 Fluticasone/ Vilanterol (Breo Ellipta 200-25 Mcg Inh) 1 inh DAILY INH Last administered on 12/05/18at 08:03; Admin Dose 1 INH; Start 12/05/18 at 09:00 Potassium Chloride/Dextrose/ Sod Cl 1,000 ml @ 100 mls/hr Q10H IV Last administered on 12/05/18at 10:44; Admin Dose 100 MLS/HR; Start 12/04/18 at 13:50 IV Flush (NS 3 ml) 3 ml PER PROTOCOL IV ; Start 12/04/18 at 14:00 Lorazepam (Ativan) 0.5 mg Q8H PRN PO .ANXIETY; Start 12/04/18 at 14:00 Ondansetron HCl (Zofran Inj) 4 mg Q6H PRN IV NAUSEA/VOMITING; Start 12/04/18 at 14:00 Nitroglycerin (Nitroglycerin (Sl Tab) 0.4 Mg) 1 tab Q5M PRN SL .CHEST PAIN; Start 12/04/18 at 14:00 Acetaminophen (Tylenol Tab) 650 mg Q6H PRN PO .PAIN 1-3 OR TEMP; Start 12/04/18 at 14:00 Zolpidem Tartrate (Ambien) 5 mg QHS PRN PO .INSOMNIA; Start 12/04/18 at 14:00 Insulin Aspart (Novolog Insulin Pen) NOVOLOG *MILD* ALGORITHM WITH MEALS BEDTIME SC Last administered on 12/05/18at 08:11; Admin Dose 1 UNIT; Start 12/04/18 at 18:00 Cyanocobalamin (Vitamin B12) 1,000 mcg DAILY PO ; Start 12/05/18 at 09:00 Famotidine (Pepcid Iv) 20 mg DAILY IV Last administered on 12/05/18at 08:03; Admin Dose 20 MG; Start 12/05/18 at 09:00 Miscellaneous Information (* Miscellaneous Pharmacy Order) 1 ea DAILY XX ; Start 12/05/18 at 09:00; Status UNV Fentanyl (Sublimaze) 25 mcg PACU ORDER PRN IV MILD PAIN 1-3; Start 12/05/18 at 14:00; Stop 12/05/18 at 20:00 Ondansetron HCl (Zofran Inj) 4 mg PACU ORDER PRN IV NAUSEA/VOMITING; Start 12/05/18 at 14:00; Stop 12/05/18 at 20:00 Hydralazine HCl (Apresoline) 5 mg PACU ORDER PRN IV HIGH BLOOD PRESSURE; Start 12/05/18 at 14:00; Stop 12/05/18 at 20:00 Ephedrine Sulfate 5 mg PACU ORDER PRN IV BLOOD PRESSURE SUPPORT; Start 12/05/18 at 14:00; Stop 12/05/18 at 20:00 Albuterol (Proventil 0.083% (Neb)) 2.5 mg PACU ORDER PRN HHN .WHEEZING; Start 12/05/18 at 14:00; Stop 12/05/18 at 20:00 Fluconazole (Diflucan) 100 mg DAILY GTB ; Start 12/05/18 at 18:00 ABIMAEL MARTINEZ MD Dec 05, 2018 17:59
[2018-12-05] MEDS ORDERED: LEVALBUTEROL (NEB) 1.25 MG/0.5 ML AMP HHN PRN (18:00)
--- NOTE | 2018-12-05 19:43 | CONS ---
DATE OF ADMISSION: 12/04/2018 DATE OF CONSULTATION: 12/05/2018 TYPE OF CONSULTATION: Cardiology. REASON FOR CONSULTATION: Supraventricular tachyarrhythmia. REQUESTING PHYSICIAN: Eddie Steele MD HISTORY OF PRESENT ILLNESS: Ms. 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 The teodora ent denied at that time bright red blood per rectum and melena. Upon arrival in the emergency depart ment, temperature was 98.2, blood pressure 142/81, pulse 102, respiratory rate 18, satting 94%. The patient's labs were notable for a white blood cell count 7.9, hemoglobin 7.4, platelet count of 426, MCV of 65.5, a sodium of 142, potassium 3.9, creatinine 0.6, BUN 13, troponin negative, AST 19, ALT 2 8, INR 0.89. The patient underwent a chest x-ray that revealed atherosclerotic aorta without CHF, di scoid atelectasis on both lung bases. The patient's electrocardiogram revealed normal sinus rhythm, rate 96, normal axis, normal intervals, isolated T-wave flattening in aVL. The patient was subsequen tly admitted to the floor and since admit to the floor, has had a mild down trending of hemoglobin fr om 7.4 to 7.2. The patient has been evaluated by the gastroenterology service and underwent endoscop y revealing colonic mass with a biopsy done and pathology is pending. During this time, the patient has been monitored on telemetry for this and has had recurrent bouts of supraventricular tachycardia arrhythmias primarily regular with portion of irregularity, rates from 170 to 180s. Given these find ings, cardiac consult was requested. Upon further questioning, the patient states that she has notic ed recurrent episodes of short palpitations for years and was told that she had an irregular heartbea t. PAST MEDICAL HISTORY: As above in HPI. MEDICATIONS CURRENTLY IN HOSPITAL: 1. Fluconazole. 2. Xopenex. 3. Fluoxetine. 4. Losartan 100 mg daily. 5. Claritin 10 mg daily. 6. Fluticasone. 7. Vitamin B12. 8. Pepcid. 9. Synthroid 150 mcg daily. 10. Lipitor 80 mg at bedtime. 11. Klonopin 0.5 at bedtime. 12. Zetia 10 mg at bedtime. 13. Gabapentin 300 mg p.o. b.i.d. 14. Singulair 10 mg at bedtime. 15. Mirapex 0.25 at bedtime. 16. Insulin sliding scale. 17. Sublingual nitroglycerin p.r.n. 18. Ambien p.r.n. 19. Tylenol p.r.n. ALLERGIES: NO KNOWN DRUG ALLERGIES. SOCIAL HISTORY: No current tobacco, EtOH or illicit drug use, but former tobacco usage. FAMILY HISTORY: No history of sudden cardiac or early CAD. REVIEW OF SYSTEMS: As above in HPI. CONSTITUTIONAL: No fevers, chills. PULMONARY: No current shortness of breath. History of asthma, history of COPD. CARDIOVASCULAR: No current chest pain, but intermittent palpitations. GASTROINTESTINAL: Recent onset of possible melena and bright red blood per rectum per patient just s ashly admit to the hospital. ENDOCRINE: History of hypothyroidism, diabetes mellitus. PSYCHIATRIC: Positive psych history. NEUROLOGIC: No documented CVA. HEMATOLOGIC: Anemia. PHYSICAL EXAMINATION: VITAL SIGNS: Temperature of 98.4, blood pressure 121/82, pulse 89, respiratory rate 20, satting 95%. GENERAL: The patient is alert, awake, in no acute distress. NECK: JVP approximately is 8 to 9 cm of water. CHEST: Fair air movement throughout. HEART: Regular rate and rhythm. Normal S1, S2, I/ systolic murmur, nondisplaced PMI. ABDOMEN: Positive bowel sounds, soft. EXTREMITIES: No significant pitting edema, 1+ pulses bilateral posterior tibial. LABORATORIES: Most recently from today, white blood cell count 5.9, hemoglobin 7.2, MCV 67.1, platel et count of 355. Sodium 142, potassium 3.9, creatinine 0.6, BUN 13. AST 19, AST 28. Troponin negat zhanna. INR 0.9. IMAGING STUDIES: As above in HPI. No further imaging for my review at this time. ELECTROCARDIOGRAM: As above in HPI. No further electrocardiograms for my review at this time. IMPRESSION: 1. Supraventricular tachycardia with review of telemetry strips being likely most consistent with at rioventricular rakesh reentry tachycardia initially with premature atrial contractions. Differential includes atrial tachycardia, atrioventricular reentrant tachycardia less likely. 2. Hypertension, currently under reasonable control on monotherapy with losartan, low dose. 3. Anemia secondary to findings of colonic mass. 4. Ascending colonic mass. Assess pathology. Follow up findings. 5. Diabetes mellitus. 6. 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 7. Persistent asthma. 8. Psychiatric disorder. 9. Chronic obstructive pulmonary disease. 10. Dyslipidemia. RECOMMENDATIONS: 1. At this time, we will maintain the patient on telemetry monitoring to follow rhythm and rates raymond sely. 2. Continue to check serial EKGs, assess for ongoing changes. 3. We will check patient's TSH to assess the patient's current thyroid state and its possible contri bution to recurrent bouts of short runs of supraventricular tachyarrhythmia and we will initiate teodora ent on a statin, beta el to possibly suppress further bouts of supraventricular tachycardia. 4. Check a 2D echo for this patient's ejection fraction, wall motion, rule out any structural heart disease and assess atrial size. 5. In addition, check a fasting lipid panel while the patient is here and adjust the patient's stati n therapy as necessary. Thank you for allowing me to take part in the care of this patient. I will continue to follow her al demetrius very closely with you with further recommendations will be made as the patient progresses through her inpatient hospital clinical course. Dictated By: CINDY GRANDE/NTS Conf#: [id number] DID#: [id number] CC: EDDIE STEELE MD; AIDAN GALLARDO MD;*End*
[2018-12-05] MEDS ORDERED: DILTIAZEM 25 MG INJ IV PRN (20:00)
[2018-12-05] MEDS ORDERED: IOHEXOL 14.3 MG(I)/ML (ADULT) BTL PO ONE (20:00)
[2018-12-05] MEDS: PRAMIPEXOLE 0.25 MG TAB PO SCH (21:00)
[2018-12-05] MEDS: ATENOLOL 25 MG TAB PO SCH (21:00)
[2018-12-05] MEDS: MONTELUKAST 10 MG TAB PO SCH (21:26)
[2018-12-05] MEDS: EZETIMIBE 10 MG TAB PO SCH (21:26)
[2018-12-05] MEDS: clonAZEPAM 0.5 MG TAB PO SCH (21:26)
[2018-12-05] MEDS: ATORVASTATIN 80 MG TAB PO SCH (21:26)
[2018-12-05] MEDS ORDERED: METOCLOPRAMIDE 10 MG INJ IV ONE (21:30)
[2018-12-06] VITALS (13 sets, daily range): BP systolic 109–136; BP diastolic 58–63; PULSE 69–96; RESP 18–20
[2018-12-06] MEDS ORDERED: SOD CHLORIDE 0.9% 100 ML ONE (00:44)
[2018-12-06] MEDS ORDERED: IOHEXOL 300MG/ML 150 ML BTL ONE (00:44)
[2018-12-06] MEDS: D5W-0.45 NACL + KCL 20 MEQ 1,000 ML IV SCH ×2 (05:44→10:05)
[2018-12-06] MEDS: LEVOTHYROXINE 175 MCG TAB PO SCH (07:00)
[2018-12-06] MEDS: INSULIN ASPART [NOVOLOG] 3 ML PEN SC SCH ×4 (08:00→21:00)
[2018-12-06] MEDS: ATENOLOL 25 MG TAB PO SCH ×3 (09:00→20:52)
[2018-12-06] MEDS: FAMOTIDINE 20 MG INJ IV SCH (10:04)
[2018-12-06] MEDS: FLUOXETINE 20 MG CAP PO SCH (10:05)
[2018-12-06] MEDS: LORATADINE 10 MG TAB PO SCH (10:05)
[2018-12-06] MEDS: CYANOCOBALAMIN 500 MCG TAB PO SCH (10:05)
[2018-12-06] MEDS: LOSARTAN 25 MG TAB PO SCH (10:07)
[2018-12-06] MEDS: ROFLUMILAST 500 MCG TABLET PO SCH (10:08)
[2018-12-06] MEDS: GABAPENTIN 300 MG CAP PO SCH ×2 (10:08→20:51)
[2018-12-06] MEDS: FLUCONAZOLE 100 MG TAB GTB SCH (10:09)
[2018-12-06] MEDS: FLUTICASONE/VILANTEROL 200-25 INH DEVICE INH SCH (10:09)
--- NOTE | 2018-12-06 10:19 | CONS ---
Assessment/Plan Assessment/Plan Assessment/Plan (Daily) Pt is comfortable now and is anxious to go home. The ascending colon tumor is likely to be an adenocarcinoma but the report is not yet final. She was seen by Dr. Keenan, who will see her as an outpatient once she is stable, to arrange surgical resection of the colonic mass. In the meantime, her cardiac rhythm is being treated and she still has some wheezing. The iron deficiency will need to be treated. I would suggest FeSO4 325 mg tid with meals once she is back to eating a normal diet. If she cannot take oral iron, I can give IV Injectafer as an outpatient. I asked her to arrange outpatient f/u next week. Please also note the CEA was 4.8. This suggests that this marker would not be a good marker for f/u in the future if she does have a colon cancer. Thank you for calling us to see this very pleasant woman. Consultation Date/Type/Reason Admit Date/Time 12/04/2018 @ 1400 Date of Consultation: Dec 06, 2018 Type of Consult Oncology/Hematology Reason for Consultation Colonic mass and iron deficiency anemia Requesting Provider: ABIMAEL MARTINEZ MD Date/Time of Note DATE: 12/06/18 TIME: 10:03 Hx of Present Illness 73 yo woman referred for iron deficiency anemia and a colonic mass. Dr. Rivera has done colonoscopy and biopsy from that procedure of a mass seen in the ascending colon is pending. She also had a supraventricular tachycardia and is followed by Dr. Chung and has had two units of RBC for the significant anemia. Other problems include COPD, diabetes, esophageal candidiases, hypothyroidism, benign essential tremor, hyperlipidemia, , s/p C section, s/p tonsillectomy and former smoker Respiratory: shortness of breath Past Medical History Medical History: diabetes, high cholesterol, hypothyroid, other (COPD/asthma, asymptomatic microscopic hematuria, essential tremor, depression, and DANISH) Home Meds Reported Medications Gabapentin* (Gabapentin*) 300 Mg Capsule, 300 MG PO BID, #60 CAP 12/04/18 Pramipexole* (Pramipexole*) 0.25 Mg Tablet, 0.25 MG PO HS, TAB 12/04/18 Albuterol Sulfate* (Ventolin HFA*) 18 Gm Hfa.aer.ad, 2 PUFF INHALATION Q4H, #1 INHALER 12/04/18 Salmeterol Xinaf-Fluticasone* (Advair*) 500/50 Diskus Inhaler, 1 INH INHALATION BID, #1 INHALER 12/04/18 Cyanocobalamin* (Vitamin B12*) 500 Mcg Tab, 5000 MCG PO DAILY, TAB 12/04/18 Atorvastatin* (Atorvastatin*) 80 Mg Tablet, 80 MG PO QHS, #30 TAB 12/04/18 Cetirizine Hcl* (Cetirizine Hcl*) 10 Mg Tab.chew, 10 MG PO DAILY, #30 TAB 12/04/18 Losartan Potassium* (Losartan Potassium*) 25 Mg Tablet, 25 MG PO DAILY, TAB 12/04/18 Ezetimibe* (Zetia*) 10 Mg Tablet, 10 MG PO HS, TAB 12/04/18 Fluoxetine Hcl* (Fluoxetine Hcl*) 40 Mg Capsule, 40 MG PO DAILY, CAP 12/04/18 Levothyroxine Sodium* (Levoxyl*) 175 Mcg Tablet, 175 MCG PO BEFORE BREAKFAST, #30 TAB 12/04/18 Montelukast Sodium* (Montelukast Sodium*) 10 Mg Tablet, 10 MG PO QHS, #30 TAB 12/04/18 Roflumilast (Daliresp) 500 Mcg Tablet, 500 MCG PO DAILY, TAB 12/04/18 Clonazepam* (Clonazepam*) 0.5 Mg Tablet, 0.5 MG PO QHS, TAB 12/04/18 Varenicline Tartrate (Chantix) 1 Mg Tablet, 1 MG PO BID, TAB 12/04/18 Medications Current Medications Atorvastatin Calcium (Lipitor) 80 mg QHS PO Last administered on 12/05/18at 21:26; Admin Dose 80 MG; Start 12/04/18 at 21:00 Clonazepam (Klonopin) 0.5 mg QHS PO Last administered on 12/05/18at 21:26; Admin Dose 0.5 MG; Start 12/04/18 at 21:00 EZETIMIBE (Zetia) 10 mg HS PO Last administered on 12/05/18at 21:26; Admin Dose 10 MG; Start 12/04/18 at 21:00 Fluoxetine HCl (Prozac) 40 mg DAILY PO ; Start 12/05/18 at 09:00 Gabapentin (Neurontin) 300 mg BID PO Last administered on 12/05/18 21:26; Admin Dose 300 MG; Start 12/04/18 at 21:00 Levothyroxine Sodium (Synthroid) 175 mcg BEFORE BREAKFAST PO Last administered on 12/06/18 07:00; Admin Dose 175 MCG; Start 12/05/18 at 07:00 Losartan Potassium (Cozaar) 25 mg DAILY PO ; Start 12/05/18 at 09:00 Montelukast Sodium (Singulair) 10 mg QHS PO Last administered on 12/05/18 21:26; Admin Dose 10 MG; Start 12/04/18 at 21:00 Pramipexole (Mirapex) 0.25 mg HS PO ; Start 12/04/18 at 21:00 Roflumilast (Daliresp) 500 mcg DAILY PO ; Start 12/05/18 at 09:00 Loratadine (Claritin) 10 mg DAILY PO ; Start 12/05/18 at 09:00 Fluticasone/ Vilanterol (Breo Ellipta 200-25 Mcg Inh) 1 inh DAILY INH Last administered on 12/05/18 08:03; Admin Dose 1 INH; Start 12/05/18 at 09:00 Potassium Chloride/Dextrose/ Sod Cl 1,000 ml @ 100 mls/hr Q10H IV Last administered on 12/05/18 21:27; Admin Dose 100 MLS/HR; Start 12/04/18 at 13:50 IV Flush (NS 3 ml) 3 ml PER PROTOCOL IV ; Start 12/04/18 at 14:00 Lorazepam (Ativan) 0.5 mg Q8H PRN PO .ANXIETY; Start 12/04/18 at 14:00 Ondansetron HCl (Zofran Inj) 4 mg Q6H PRN IV NAUSEA/VOMITING Last administered on 12/05/18 21:05; Admin Dose 4 MG; Start 12/04/18 at 14:00 Nitroglycerin (Nitroglycerin (Sl Tab) 0.4 Mg) 1 tab Q5M PRN SL .CHEST PAIN; Start 12/04/18 at 14:00 Acetaminophen (Tylenol Tab) 650 mg Q6H PRN PO .PAIN 1-3 OR TEMP; Start 12/04/18 at 14:00 Zolpidem Tartrate (Ambien) 5 mg QHS PRN PO .INSOMNIA; Start 12/04/18 at 14:00 Insulin Aspart (Novolog Insulin Pen) NOVOLOG *MILD* ALGORITHM WITH MEALS BEDTIME SC Last administered on 12/05/18at 08:11; Admin Dose 1 UNIT; Start 12/04/18 at 18:00 Cyanocobalamin (Vitamin B12) 1,000 mcg DAILY PO ; Start 12/05/18 at 09:00 Famotidine (Pepcid Iv) 20 mg DAILY IV Last administered on 12/05/18at 08:03; Admin Dose 20 MG; Start 12/05/18 at 09:00 Miscellaneous Information (* Miscellaneous Pharmacy Order) 1 ea DAILY XX ; Start 12/05/18 at 09:00; Status UNV Fluconazole (Diflucan) 100 mg DAILY GTB Last administered on 12/05/18at 17:48; Admin Dose 100 MG; Start 12/05/18 at 18:00 Levalbuterol (Xopenex Neb) 1.25 mg Q4H RESP THERAPY PRN HHN SHORTNESS OF BREATH; Start 12/05/18 at 18:00 Atenolol (Tenormin) 12.5 mg BID PO ; Start 12/05/18 at 21:00 Diltiazem HCl (Cardizem Iv) 5 mg Q4 PRN IV HR>110 Hold SBP<100; Start 12/05/18 at 20:00 Allergies: Coded Allergies: No Known Allergy (Unverified , 12/04/18) Past Surgical History Past Surgical Hx: other (c-sect, T&A) Social History Alcohol Use: none Smoking Status: Current some day smoker Drug Use: none Exam/Review of Systems Exam Vitals Vital Signs Date Temp Pulse Resp B/P (MAP) Pulse Ox O2 O2 Flow FiO2 Time Delivery Rate 12/06/18 69 08:15 12/06/18 97.8 20 109/59 96 BIPAP 07:32 (76) 12/06/18 30 04:48 12/06/18 2.0 01:49 Intake and Output 12/05/18 12/05/18 12/06/18 1515:00 23:00 07:00 IntakeIntake Total 750 ml 1600 ml BalanceBalance 750 ml 1600 ml Constitutional: alert, oriented Head: normocephalic Eyes: other (moderate pallor) Neck: supple Respiratory: diminished breath sounds, wheezing (faint) Cardiovascular: regular rate and rhythm, nl pulses Gastrointestinal: soft, nl liver, spleen, non-tender Neurological: nl mental status, nl speech Results Result Diagram: 12/06/1852012/06/18520 Results 24hrs Laboratory Tests Test 12/05/18 12:04 12/05/18 17:08 12/05/18 21:35 12/06/18 05:21 Bedside Glucose 135 126 111 White Blood Count 6.3 Red Blood Count 4.08 L Hemoglobin 8.2 L Hematocrit 28.4 L Mean Corpuscular 69.6 L Volume Mean Corpuscular 20.1 L Hemoglobin Mean Corpuscular 28.9 L Hemoglobin Concen t Red Cell 23.7 H Distribution Width Platelet Count 338 Mean Platelet 9.6 Volume Immature 0.200 Granulocytes % Neutrophils % 69.6 Lymphocytes % 19.0 Monocytes % 8.4 Eosinophils % 2.5 Basophils % 0.3 Nucleated Red 0.0 Blood Cells % Immature 0.010 Granulocytes # Neutrophils # 4.4 Lymphocytes # 1.2 Monocytes # 0.5 Eosinophils # 0.2 Basophils # 0.0 Nucleated Red 0.0 Blood Cells # Sodium Level 139 Potassium Level 3.7 Chloride Level 106 Carbon Dioxide 29 Level Anion Gap 4 L Blood Urea 4 #L Nitrogen Creatinine 0.54 Est Glomerular Filtrat Rate mL/min Glucose Level 105 # Calcium Level 8.1 L Troponin I < 0.012 Triglycerides 83 Level Cholesterol Level 97 L LDL Cholesterol, 26 Calculated HDL Cholesterol 54 Cholesterol/HDL 1.7 Ratio Carcinoembryonic 4.8 Antigen Test 12/06/18 05:30 Lab Scanned BLOOD TRANSFUSIO Report N Medications Medication Current Medications Atorvastatin Calcium (Lipitor) 80 mg QHS PO Last administered on 12/05/18at 21:26; Admin Dose 80 MG; Start 12/04/18 at 21:00 Clonazepam (Klonopin) 0.5 mg QHS PO Last administered on 12/05/18at 21:26; Admin Dose 0.5 MG; Start 12/04/18 at 21:00 EZETIMIBE (Zetia) 10 mg HS PO Last administered on 12/05/18at 21:26; Admin Dose 10 MG; Start 12/04/18 at 21:00 Fluoxetine HCl (Prozac) 40 mg DAILY PO ; Start 12/05/18 at 09:00 Gabapentin (Neurontin) 300 mg BID PO Last administered on 12/05/18 21:26; Admin Dose 300 MG; Start 12/04/18 at 21:00 Levothyroxine Sodium (Synthroid) 175 mcg BEFORE BREAKFAST PO Last administered on 12/06/18at 07:00; Admin Dose 175 MCG; Start 12/05/18 at 07:00 Losartan Potassium (Cozaar) 25 mg DAILY PO ; Start 12/05/18 at 09:00 Montelukast Sodium (Singulair) 10 mg QHS PO Last administered on 12/05/18at 21:26; Admin Dose 10 MG; Start 12/04/18 at 21:00 Pramipexole (Mirapex) 0.25 mg HS PO ; Start 12/04/18 at 21:00 Roflumilast (Daliresp) 500 mcg DAILY PO ; Start 12/05/18 at 09:00 Loratadine (Claritin) 10 mg DAILY PO ; Start 12/05/18 at 09:00 Fluticasone/ Vilanterol (Breo Ellipta 200-25 Mcg Inh) 1 inh DAILY INH Last administered on 12/05/18at 08:03; Admin Dose 1 INH; Start 12/05/18 at 09:00 Potassium Chloride/Dextrose/ Sod Cl 1,000 ml @ 100 mls/hr Q10H IV Last administered on 12/05/18at 21:27; Admin Dose 100 MLS/HR; Start 12/04/18 at 13:50 IV Flush (NS 3 ml) 3 ml PER PROTOCOL IV ; Start 12/04/18 at 14:00 Lorazepam (Ativan) 0.5 mg Q8H PRN PO .ANXIETY; Start 12/04/18 at 14:00 Ondansetron HCl (Zofran Inj) 4 mg Q6H PRN IV NAUSEA/VOMITING Last administered on 12/05/18at 21:05; Admin Dose 4 MG; Start 12/04/18 at 14:00 Nitroglycerin (Nitroglycerin (Sl Tab) 0.4 Mg) 1 tab Q5M PRN SL .CHEST PAIN; Start 12/04/18 at 14:00 Acetaminophen (Tylenol Tab) 650 mg Q6H PRN PO .PAIN 1-3 OR TEMP; Start 12/04/18 at 14:00 Zolpidem Tartrate (Ambien) 5 mg QHS PRN PO .INSOMNIA; Start 12/04/18 at 14:00 Insulin Aspart (Novolog Insulin Pen) NOVOLOG *MILD* ALGORITHM WITH MEALS BEDTI ME SC Last administered on 12/05/18at 08:11; Admin Dose 1 UNIT; Start 12/04/18 at 18:00 Cyanocobalamin (Vitamin B12) 1,000 mcg DAILY PO ; Start 12/05/18 at 09:00 Famotidine (Pepcid Iv) 20 mg DAILY IV Last administered on 12/05/18at 08:03; Admin Dose 20 MG; Start 12/05/18 at 09:00 Miscellaneous Information (* Miscellaneous Pharmacy Order) 1 ea DAILY XX ; Start 12/05/18 at 09:00; Status UNV Fluconazole (Diflucan) 100 mg DAILY GTB Last administered on 12/05/18at 17:48; Admin Dose 100 MG; Start 12/05/18 at 18:00 Levalbuterol (Xopenex Neb) 1.25 mg Q4H RESP THERAPY PRN HHN SHORTNESS OF BREATH; Start 12/05/18 at 18:00 Atenolol (Tenormin) 12.5 mg BID PO ; Start 12/05/18 at 21:00 Diltiazem HCl (Cardizem Iv) 5 mg Q4 PRN IV HR>110 Hold SBP<100; Start 12/05/18 at 20:00 ULISES MA MD Dec 06, 2018 10:14
--- NOTE | 2018-12-06 11:39 | RADRPT ---
Vent Rate: 69 bpm RR Interval: 864 msec [place] Interval: 124 msec QRS Duration: 85 msec QT Interval: 406 msec QTC Interval: 437 msec P-R-T [place]: 70 - 66 - 60 degrees Sinus rhythm...normal P axis, V-rate 50- 99 Electronically Signed By: Eddie Wallace
--- NOTE | 2018-12-06 14:01 | CONS ---
DATE OF ADMISSION: 12/04/2018 DATE OF CONSULTATION: 12/06/2018 SUBJECTIVE: She has no specific complaints. The patient underwent EGD which showed candidiasis yesterday. Also, colonoscopy showed a mass in the ascending colon. Today Dr. Redman called me to say that the patient has adenocarcinoma of the ascending colon. PHYSICAL EXAMINATION: GENERAL: She is alert, she is not in distress. CARDIOVASCULAR: Normal heart sounds. RESPIRATORY: Normal breath sounds. ABDOMEN: Soft. LABORATORY WORKUP: The chemistry, CEA level is 4.8. The liver function is normal. Hemoglobin is 8. 2. CLINICAL IMPRESSION: Carcinoma of the ascending colon. PLAN: Patient seen by Dr. Keenan and Dr. Van and she will have surgery in the near future per Dr Nacho Keenan. Dictated By: AIDAN GALLARDO MD [place]/NTS Conf#: [id number] DID#: [id number] CC: ABIMAEL MARTINEZ MD;*EndCC*
--- NOTE | 2018-12-06 15:02 | CONS ---
Assessment/Plan Assessment/Plan Hospital Course (Demo Recall) IMPRESSION: 1. Supraventricular tachycardia with review of telemetry strips being likely most consistent with atrioventricular rakesh reentry tachycardia initially with premature atrial contractions. Differential includes atrial tachycardia, atrioventricular reentrant tachycardia less likely.- no sig recurrence. NLTSH by lab analysis 2. Hypertension, currently under reasonable control on monotherapy with losartan, low dose. 3. Anemia secondary to findings of colonic mass. 4. Ascending colonic mass. Assess pathology. Follow up findings. 5. Diabetes mellitus. 6. 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 7. Persistent asthma. 8. Psychiatric disorder. 9. Chronic obstructive pulmonary disease. 10. Dyslipidemia. Recc: -Tele -serial ecg's -Continue atenolol/losartan as tolerated and if necessary will decrease dose of losartan to allow patient to tolerate atenolol for suppression of further bouts of SVT -Will f/u echo -f/u path on BX of colonic mass with probbale need for resection soon -continue statin -continue zetia/statin Consultation Date/Type/Reason Admit Date/Time Dec 04, 2018 at 12:22 Initial Consult Date 12/06/18 Type of Consult Cardiology Reason for Consultation SVT Requesting Provider: ABIMAEL MARTINEZ MD Date/Time of Note DATE: 12/06/18 TIME: 14:50 Exam/Review of Systems Vital Signs Vitals Vital Signs Date Temp Pulse Resp B/P (MAP) Pulse Ox O2 O2 Flow FiO2 Time Delivery Rate 12/06/18 96 2.0 14:36 12/06/18 83 12:12 12/06/18 98.0 20 136/61 Room Air 11:00 (86) 12/06/18 30 04:48 Intake and Output 12/05/18 12/05/18 12/06/18 1515:00 23:00 07:00 IntakeIntake Total 750 ml 1600 ml BalanceBalance 750 ml 1600 ml Exam Exam Review of Systems: CONSTITUTIONAL: No fevers, chills. PULMONARY: No sob CARDIOVASCULAR: No chest pain/palpitations GASTROINTESTINAL: No nausea/vomiting. GENITOURINARY: No hematuria/dysuria. MUSCULOSKELETAL: No myagias/arthalgias. PSYCHIATRIC: The patient denies depression. NEUROLOGIC: No weakness Constitutional: alert Psych: no complaints Head: normocephalic ENMT: mucosa pink and moist Neck: supple, jvd (9 cm water) Respiratory: diminished breath sounds (at bases/B) Cardiovascular: regular rate and rhythm Gastrointestinal: soft, non-tender Musculoskeletal: muscle tone (normal) Extremities: edema (none) Neurological: other (No focal deficits) Labs Result Diagram: 12/06/1852012/06/18520 Results 24hrs Laboratory Tests Test 12/05/18 17:08 12/05/18 21:35 12/06/18 05:21 12/06/18 05:30 Bedside Glucose 126 111 White Blood Count 6.3 Red Blood Count 4.08 L Hemoglobin 8.2 L Hematocrit 28.4 L Mean Corpuscular 69.6 L Volume Mean Corpuscular 20.1 L Hemoglobin Mean Corpuscular 28.9 L Hemoglobin Concen t Red Cell 23.7 H Distribution Width Platelet Count 338 Mean Platelet 9.6 Volume Immature 0.200 Granulocytes % Neutrophils % 69.6 Lymphocytes % 19.0 Monocytes % 8.4 Eosinophils % 2.5 Basophils % 0.3 Nucleated Red 0.0 Blood Cells % Immature 0.010 Granulocytes # Neutrophils # 4.4 Lymphocytes # 1.2 Monocytes # 0.5 Eosinophils # 0.2 Basophils # 0.0 Nucleated Red 0.0 Blood Cells # Sodium Level 139 Potassium Level 3.7 Chloride Level 106 Carbon Dioxide 29 Level Anion Gap 4 L Blood Urea 4 #L Nitrogen Creatinine 0.54 Est Glomerular Filtrat Rate mL/min Glucose Level 105 # Calcium Level 8.1 L Troponin I < 0.012 Triglycerides 83 Level Cholesterol Level 97 L LDL Cholesterol, 26 Calculated HDL Cholesterol 54 Cholesterol/HDL 1.7 Ratio Carcinoembryonic 4.8 Antigen Lab Scanned BLOOD TRANSFUSIO Report N Test 12/06/18 10:13 12/06/18 11:47 Bedside Glucose 139 131 Medications Medications Current Medications Atorvastatin Calcium (Lipitor) 80 mg QHS PO Last administered on 12/05/18at 21:26; Admin Dose 80 MG; Start 12/04/18 at 21:00 Clonazepam (Klonopin) 0.5 mg QHS PO Last administered on 12/05/18at 21:26; Admin Dose 0.5 MG; Start 12/04/18 at 21:00 EZETIMIBE (Zetia) 10 mg HS PO Last administered on 12/05/18at 21:26; Admin Dose 10 MG; Start 12/04/18 at 21:00 Fluoxetine HCl (Prozac) 40 mg DAILY PO Last administered on 12/06/18 10:05; Admin Dose 40 MG; Start 12/05/18 at 09:00 Gabapentin (Neurontin) 300 mg BID PO Last administered on 12/06/18 10:08; Admin Dose 300 MG; Start 12/04/18 at 21:00 Levothyroxine Sodium (Synthroid) 175 mcg BEFORE BREAKFAST PO Last administered on 12/06/18 07:00; Admin Dose 175 MCG; Start 12/05/18 at 07:00 Losartan Potassium (Cozaar) 25 mg DAILY PO Last administered on 12/06/18 10:07; Admin Dose 25 MG; Start 12/05/18 at 09:00 Montelukast Sodium (Singulair) 10 mg QHS PO Last administered on 12/05/18 21:26; Admin Dose 10 MG; Start 12/04/18 at 21:00 Pramipexole (Mirapex) 0.25 mg HS PO ; Start 12/04/18 at 21:00 Roflumilast (Daliresp) 500 mcg DAILY PO Last administered on 12/06/18 10:08; Admin Dose 500 MCG; Start 12/05/18 at 09:00 Loratadine (Claritin) 10 mg DAILY PO Last administered on 12/06/18 10:05; Admin Dose 10 MG; Start 12/05/18 at 09:00 Fluticasone/ Vilanterol (Breo Ellipta 200-25 Mcg Inh) 1 inh DAILY INH Last administered on 12/06/18 10:09; Admin Dose 1 INH; Start 12/05/18 at 09:00 Potassium Chloride/Dextrose/ Sod Cl 1,000 ml @ 100 mls/hr Q10H IV Last administered on 12/06/18 10:05; Admin Dose 100 MLS/HR; Start 12/04/18 at 13:50 IV Flush (NS 3 ml) 3 ml PER PROTOCOL IV ; Start 12/04/18 at 14:00 Lorazepam (Ativan) 0.5 mg Q8H PRN PO .ANXIETY; Start 12/04/18 at 14:00 Ondansetron HCl (Zofran Inj) 4 mg Q6H PRN IV NAUSEA/VOMITING Last administered on 6/13/19at 21:05; Admin Dose 4 MG; Start 12/04/18 at 14:00 Nitroglycerin (Nitroglycerin (Sl Tab) 0.4 Mg) 1 tab Q5M PRN SL .CHEST PAIN; Start 12/04/18 at 14:00 Acetaminophen (Tylenol Tab) 650 mg Q6H PRN PO .PAIN 1-3 OR TEMP; Start 12/04/18 at 14:00 Zolpidem Tartrate (Ambien) 5 mg QHS PRN PO .INSOMNIA; Start 12/04/18 at 14:00 Insulin Aspart (Novolog Insulin Pen) NOVOLOG *MILD* ALGORITHM WITH MEALS BEDTIME SC Last administered on 12/05/18at 08:11; Admin Dose 1 UNIT; Start 12/04/18 at 18:00 Cyanocobalamin (Vitamin B12) 1,000 mcg DAILY PO Last administered on 12/06/18at 10:05; Admin Dose 1,000 MCG; Start 12/05/18 at 09:00 Miscellaneous Information (* Miscellaneous Pharmacy Order) 1 ea DAILY XX ; Start 12/05/18 at 09:00; Status UNV Fluconazole (Diflucan) 100 mg DAILY GTB Last administered on 12/06/18at 10:09; Admin Dose 100 MG; Start 12/05/18 at 18:00 Levalbuterol (Xopenex Neb) 1.25 mg Q4H RESP THERAPY PRN HHN SHORTNESS OF BREATH; Start 12/05/18 at 18:00 Atenolol (Tenormin) 12.5 mg BID PO ; Start 12/05/18 at 21:00 Diltiazem HCl (Cardizem Iv) 5 mg Q4 PRN IV HR>110 Hold SBP<100; Start 12/05/18 at 20:00 Miscellaneous Information (*Order Clarification Bulletin) MEDICATION REQUIRES CLARIFICATION:CH... Q8H XX ; Start 12/06/18 at 11:00 Famotidine (Pepcid) 20 mg DAILY PO ; Start 12/07/18 at 09:00 CINDY HERRON 14, 2019 15:00
--- NOTE | 2018-12-06 18:28 | RADRPT ---
Echocardiogram Report Patient Name: FAWAD HURTADOPatient ID: [id number] : 1945 (73y 9m)Study Date: 12/06/2018 7:18:36 AM Gender: FAccession #: [id number] Tech: Chanel Fountain [facility] Location: [facility] Ref.Physician: CINDY CHUNG Height(Cm): BSA: Weight(Kg): Quality: AdequateOrder Physician: CINDY CHUNG Account #: Procedures: Echocardiographic Report: Transthoracic echocardiogram with complete 2D, M-Mode, and doppler examination. Indications: SVT. Measurements: 2D/M Mode Doppler Measurement Value Normal Range Measurement Value Normal Range LVIDd 2D 4.0 [ 3.8 - 5.2 ] cm AV Peak Indra 1.8 [ 100.0 - 170.0 ] cm/sec LVIDs 2D 2.5 [ 2.2 - 3.5 ] cm AV Peak PG 13.0 [ 2.0 - 9.0 ] mmHg LVPWd 2D 0.9 [ 0.6 - 0.9 ] cm LVOT Peak Indra 1.0 [ 70.0 - 110.0 ] cm/sec IVSd 2D 1.0 [ 0.6 - 0.9 ] cm LVOT Peak PG 4.0 [ 2.0 - 6.0 ] mmHg IVS/LVPW 2D 1.1 ratio MV E Peak Indra 0.6 [ 60.0 - 130.0 ] cm/sec AoR Diam 2D 2.9 [ 2.3 - 3.1 ] cm MV A Peak Indra 0.7 [ 100.0 - 120.0 ] cm/sec LA/Ao 2D 1 ratio MV E/A 0.9 [ 0.8 - 1.5 ] ratio LA Dimen 2D 3.2 [ 2.7 - 3.8 ] cm MV Decel Time 215 [ 104 - 258 ] msec Lat E` Indra 0.1 [ 10.0 - 15.0 ] cm/sec MV E/A 0.9 [ 0.8 - 1.5 ] ratio TR Peak Indra 2.1 [ 100.0 - 280.0 ] cm/sec TR Peak PG 18.0 mmHg RVSP 33.0 [ 10.0 - 36.0 ] mmHg RA Pressure 15.0 mmHg Findings: Left Ventricle: Normal left ventricular systolic function. Normal left ventricular cavity size. Normal left ventricular wall thickness. Ejection fraction is visually estimated at 55-60 %. Tissue Doppler/Mitral Doppler indices are consistent with impaired relaxation (Stage I diastolic dysfunction). Right Ventricle: Normal right ventricular size. Normal right ventricular systolic function. Left Atrium: The left atrium is normal in size. Right Atrium: The right atrium is normal in size. Mitral Valve: Normal appearance of the mitral valve. Mild mitral leaflet calcification. Trace mitral regurgitation. Aortic Valve: No significant aortic stenosis or insufficiency. Aortic cusps appear mildly calcified. Tricuspid Valve: Normal appearance of the tricuspid valve. The estimated Peak RVSP is 33 mmHg. There is trace tricuspid regurgitation. Pulmonic Valve: Pulmonic valve not well visualized. Pericardium: Normal pericardium with no significant pericardial effusion. Aorta: Normal aortic root. IVC: Dilated IVC without respiratory collapse, however, patient on bipap. Conclusions: Normal left ventricular systolic function. Normal left ventricular cavity size. Normal left ventricular wall thickness. Ejection fraction is visually estimated at 55-60 %. Tissue Doppler/Mitral Doppler indices are consistent with impaired relaxation (Stage I diastolic dysfunction). ). Normal appearance of the mitral valve. Mild mitral leaflet calcification. Trace mitral regurgitation. Normal appearance of the tricuspid valve. The estimated Peak RVSP is 33 mmHg. There is trace tricuspid regurgitation. Electronically Signed By: Cindy Chung 2018-12-06 18:27:38 PDT
--- NOTE | 2018-12-06 18:38 | PN ---
Date/Time of Note Date/Time of Note DATE: 12/06/18 TIME: 18:22 Assessment/Plan VTE Prophylaxis Risk score (from Ns)>0 risk: 2 SCD applied (from Ns): Yes SCD contraindicated: low risk/ambulating Pharmacological prophylaxis: NA/contraindicated Pharm contraindication: bleeding Lines/Catheters IV [facility] Peripheral IV Urinary Cath still in place: No Assessment/Plan Problems: (1) Adenocarcinoma of colon Status: Acute Comment: Patient has been evaluated by colorectal surgery and heme/onc. She will be a candidate for resection of adenoCA and subsequent chemo as an outpatient. CEA relatively low. Onc to manage. Staging work-up relatively negative for likely metastatic disease. (2) Peptic ulcer associated with Helicobacter pylori infection Status: Acute Comment: Also found on pathology of stomach. D/c famotidine and start pantoprazole 40 mg q12, amoxicillin 1 g q12, and clarithromycin 500 mg q12 for 14 days. GI following. (3) Candidal esophagitis Status: Acute Comment: On fluconazole. Will rinse w/ peridex following inhaled steroid in the mornings. 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 Doubtful that this could represent metastatic colon CA. Will further image w/ MRI w/ and w/o contrast and will r/o Haughton syndrome w/ 1 mg dexamethasone suppression test tonight. 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 Doubtful that this could represent metastatic colon CA. Further characterize w/ MRCP/MRI and check CA 19-9. (6) Thickening of wall of gallbladder Status: Acute Comment: Found on staging work up of the adenoCA. Asymptomatic of gall bladder disease. Further characterize w/ MRCP. (7) Anemia Status: Acute Comment: Improved following 2 units PRBC. Per heme, will start FeSO4 tid. May need injectable Fe as outpt. (8) Supraventricular tachycardia Status: Acute Comment: No recurrence. Now on atenolol and albuterol switched to levalbuterol. Cardiology following. (9) Hypothyroidism due to Sylwia's thyroiditis Status: Chronic Comment: Cont. LT4 (10) Chronic obstructive pulmonary disease Status: Chronic Comment: Cont. Breo and daliresp daily. RT has not been administering levalbuterol since med switched. Will rectify this problem. (11) Essential (primary) hypertension Status: Chronic Comment: On losartan. Atenolol added w/o causing BP to be too low. Cardiology to monitor. (12) Type 2 diabetes mellitus with other specified complication Status: Chronic Comment: Good glycemic control off meds. Will monitor now that diet being advanced. Note pt. receiving dexamethasone tonight and this will likely raise BG in the morning. O/w should remain in control w/ diet alone. (13) Pure hypercholesterolemia Status: Chronic Comment: cont. atorvastatin and ezetimibe (14) Essential tremor Status: Chronic Comment: Cont. pramipexole and gabapentin (15) Recurrent major depressive disorder in partial remission Status: Chronic Comment: Cont. fluoxetine daily (16) Obstructive sleep apnea Status: Chronic Comment: Cont. CPAP O/N (17) Allergic rhinitis Status: Chronic Comment: Cont. montelukast Result Diagram: 12/06/1852012/06/18520 Results 24hrs Laboratory Tests Test 12/05/18 21:35 12/06/18 05:21 12/06/18 05:30 12/06/18 10:13 Bedside Glucose 111 139 White Blood Count 6.3 Red Blood Count 4.08 L Hemoglobin 8.2 L Hematocrit 28.4 L Mean Corpuscular 69.6 L Volume Mean Corpuscular 20.1 L Hemoglobin Mean Corpuscular 28.9 L Hemoglobin Concen t Red Cell 23.7 H Distribution Width Platelet Count 338 Mean Platelet 9.6 Volume Immature 0.200 Granulocytes % Neutrophils % 69.6 Lymphocytes % 19.0 Monocytes % 8.4 Eosinophils % 2.5 Basophils % 0.3 Nucleated Red 0.0 Blood Cells % Immature 0.010 Granulocytes # Neutrophils # 4.4 Lymphocytes # 1.2 Monocytes # 0.5 Eosinophils # 0.2 Basophils # 0.0 Nucleated Red 0.0 Blood Cells # Sodium Level 139 Potassium Level 3.7 Chloride Level 106 Carbon Dioxide 29 Level Anion Gap 4 L Blood Urea 4 #L Nitrogen Creatinine 0.54 Est Glomerular Filtrat Rate mL/min Glucose Level 105 # Calcium Level 8.1 L Troponin I < 0.012 Triglycerides 83 Level Cholesterol Level 97 L LDL Cholesterol, 26 Calculated HDL Cholesterol 54 Cholesterol/HDL 1.7 Ratio Carcinoembryonic 4.8 Antigen Lab Scanned BLOOD TRANSFUSIO Report N Test 12/06/18 11:47 12/06/18 17:05 Bedside Glucose 131 105 Subjective 24 Hr Interval Summary Constitutional: no complaints Respiratory: shortness of breath (not getting her breathing treatments) Cardiovascular: no complaints Gastrointestinal: blood (magi blood from rectum); No nausea (last night but has resolved), No vomiting (last night but has resolved) Genitourinary: no complaints Musculoskeletal: no complaints Neurologic: no complaints Exam/Review of Systems Exam Vitals VS - Last 72 Hours, by Label Date Temp Pulse Resp B/P (MAP) Pulse Ox O2 O2 Flow FiO2 Time Delivery Rate 12/06/18 74 16:09 12/06/18 98.1 85 20 130/60 92 Room Air 15:04 (83) 12/06/18 96 2.0 14:36 12/06/18 83 12:12 12/06/18 98.0 93 20 136/61 92 Room Air 11:00 (86) 12/06/18 69 08:15 12/06/18 97.8 70 20 109/59 96 BIPAP 07:32 (76) 12/06/18 88 99 30 04:48 12/06/18 81 04:00 12/06/18 2.0 28 01:49 12/06/18 96 00:00 12/05/18 Nasal 2.0 20:00 Cannula 12/05/18 86 20:00 12/05/18 2.0 28 18:47 12/05/18 98.0 74 20 165/74 96 Nasal 16:19 (104) Cannula 12/05/18 154/62 98 Nasal 3.0 16:03 (92) Cannula 12/05/18 81 16:00 12/05/18 157/62 99 Nasal 3.0 15:58 (93) Cannula 12/05/18 157/59 98 Nasal 3.0 15:53 (91) Cannula 12/05/18 149/90 99 Nasal 3.0 15:48 (109) Cannula 12/05/18 170/85 96 Nasal 3.0 15:43 (113) Cannula 12/05/18 149/79 96 Nasal 3.0 15:38 (102) Cannula 12/05/18 151/60 96 Nasal 3.0 15:31 (90) Cannula 12/05/18 98.2 81 17 151/65 96 Nasal 3.0 15:26 (93) Cannula 12/05/18 97.1 19 93/44 (60) 96 Nasal 3.0 14:10 Cannula 12/05/18 88 16 98 Nasal 27 13:25 Cannula 12/05/18 190 12:03 12/05/18 101 12:00 12/05/18 97.9 89 20 133/64 97 11:01 (87) 12/05/18 96 2.0 27 08:28 12/05/18 82 08:00 12/05/18 97.4 80 20 123/59 96 BIPAP 07:20 (80) 12/05/18 84 98 30 05:13 12/05/18 98.6 82 18 116/60 94 04:47 (78) 12/05/18 2.0 04:33 12/05/18 79 04:00 12/05/18 89 97 30 02:12 12/05/18 98.3 86 16 118/56 96 00:51 (76) 12/05/18 97 00:00 12/04/18 Nasal 2.0 23:53 Cannula 12/04/18 98.2 78 16 155/66 94 22:00 (95) 12/04/18 91 21:52 12/04/18 88 18 134/105 100 Room Air 21:39 (115) 12/04/18 98.4 89 20 121/82 95 Room Air 17:25 (95) 12/04/18 91 142/68 98 Nasal 2.0 15:20 (92) Cannula 12/04/18 94 16 124/62 94 Nasal 2.0 12:08 (82) Cannula 12/04/18 98.2 102 18 127/81 94 09:45 (96) Vital Signs Date Temp Pulse Resp B/P (MAP) Pulse Ox O2 O2 Flow FiO2 Time Delivery Rate 12/06/18 74 16:09 12/06/18 98.1 20 130/60 92 Room Air 15:04 (83) 12/06/18 2.0 14:36 12/06/18 30 04:48 Intake and Output 12/05/18 12/05/18 12/06/18 1515:00 23:00 07:00 IntakeIntake Total 750 ml 1600 ml BalanceBalance 750 ml 1600 ml Constitutional: alert, oriented, frail Psych: depression Respiratory: wheezing Cardiovascular: regular rate and rhythm, nl pulses; No edema, No murmurs/extra sounds, No rub Gastrointestinal: soft, nl liver, spleen, non-tender, bowel sounds; No mass, No rebound or guarding Musculoskeletal: nl extremities to inspection Extremities: normal pulses; No cyanosis, No clubbing, No edema Neurological: [employer] II-XII intact, nl mental status, nl speech, nl strength Additional Comments Bedside Glucose - 72 Hours Test 12/04/18 23:01 12/05/18 07:56 12/05/18 12:04 12/05/18 17:08 Bedside 172 145 135 126 Glucose mg/dL (70-220) mg/dL (70-220) mg/dL (70-220) mg/dL (70-220) Test 12/05/18 21:35 12/06/18 10:13 12/06/18 11:47 12/06/18 17:05 Bedside 111 139 131 105 Glucose mg/dL (70-220) mg/dL (70-220) mg/dL (70-220) mg/dL (70-220) Results Results 24hrs Laboratory Tests Test 12/05/18 21:35 12/06/18 05:21 12/06/18 05:30 12/06/18 10:13 Bedside Glucose 111 139 White Blood Count 6.3 Red Blood Count 4.08 L Hemoglobin 8.2 L Hematocrit 28.4 L Mean Corpuscular 69.6 L Volume Mean Corpuscular 20.1 L Hemoglobin Mean Corpuscular 28.9 L Hemoglobin Concen t Red Cell 23.7 H Distribution Width Platelet Count 338 Mean Platelet 9.6 Volume Immature 0.200 Granulocytes % Neutrophils % 69.6 Lymphocytes % 19.0 Monocytes % 8.4 Eosinophils % 2.5 Basophils % 0.3 Nucleated Red 0.0 Blood Cells % Immature 0.010 Granulocytes # Neutrophils # 4.4 Lymphocytes # 1.2 Monocytes # 0.5 Eosinophils # 0.2 Basophils # 0.0 Nucleated Red 0.0 Blood Cells # Sodium Level 139 Potassium Level 3.7 Chloride Level 106 Carbon Dioxide 29 Level Anion Gap 4 L Blood Urea 4 #L Nitrogen Creatinine 0.54 Est Glomerular Filtrat Rate mL/min Glucose Level 105 # Calcium Level 8.1 L Troponin I < 0.012 Triglycerides 83 Level Cholesterol Level 97 L LDL Cholesterol, 26 Calculated HDL Cholesterol 54 Cholesterol/HDL 1.7 Ratio Carcinoembryonic 4.8 Antigen Lab Scanned BLOOD TRANSFUSIO Report N Test 12/06/18 11:47 12/06/18 17:05 Bedside Glucose 131 105 Medications Medication Current Medications Atorvastatin Calcium (Lipitor) 80 mg QHS PO Last administered on 12/05/18 21:26; Admin Dose 80 MG; Start 12/04/18 at 21:00 Clonazepam (Klonopin) 0.5 mg QHS PO Last administered on 12/05/18 21:26; Admin Dose 0.5 MG; Start 12/04/18 at 21:00 EZETIMIBE (Zetia) 10 mg HS PO Last administered on 12/05/18 21:26; Admin Dose 10 MG; Start 12/04/18 at 21:00 Fluoxetine HCl (Prozac) 40 mg DAILY PO Last administered on 12/06/18 10:05; Admin Dose 40 MG; Start 12/05/18 at 09:00 Gabapentin (Neurontin) 300 mg BID PO Last administered on 12/06/18 10:08; Admin Dose 300 MG; Start 12/04/18 at 21:00 Levothyroxine Sodium (Synthroid) 175 mcg BEFORE BREAKFAST PO Last administered on 12/06/18 07:00; Admin Dose 175 MCG; Start 12/05/18 at 07:00 Losartan Potassium (Cozaar) 25 mg DAILY PO Last administered on 12/06/18 10:07; Admin Dose 25 MG; Start 12/05/18 at 09:00 Montelukast Sodium (Singulair) 10 mg QHS PO Last administered on 12/05/18 21:26; Admin Dose 10 MG; Start 12/04/18 at 21:00 Pramipexole (Mirapex) 0.25 mg HS PO ; Start 12/04/18 at 21:00 Roflumilast (Daliresp) 500 mcg DAILY PO Last administered on 12/06/18 10:08; Admin Dose 500 MCG; Start 12/05/18 at 09:00 Loratadine (Claritin) 10 mg DAILY PO Last administered on 12/06/18 10:05; Admin Dose 10 MG; Start 12/05/18 at 09:00 Fluticasone/ Vilanterol (Breo Ellipta 200-25 Mcg Inh) 1 inh DAILY INH Last administered on 12/06/18at 10:09; Admin Dose 1 INH; Start 12/05/18 at 09:00 IV Flush (NS 3 ml) 3 ml PER PROTOCOL IV ; Start 12/04/18 at 14:00 Lorazepam (Ativan) 0.5 mg Q8H PRN PO .ANXIETY; Start 12/04/18 at 14:00 Ondansetron HCl (Zofran Inj) 4 mg Q6H PRN IV NAUSEA/VOMITING Last administered on 12/05/18at 21:05; Admin Dose 4 MG; Start 12/04/18 at 14:00 Nitroglycerin (Nitroglycerin (Sl Tab) 0.4 Mg) 1 tab Q5M PRN SL .CHEST PAIN; Start 12/04/18 at 14:00 Acetaminophen (Tylenol Tab) 650 mg Q6H PRN PO .PAIN 1-3 OR TEMP; Start 12/04/18 at 14:00 Zolpidem Tartrate (Ambien) 5 mg QHS PRN PO .INSOMNIA; Start 12/04/18 at 14:00 Insulin Aspart (Novolog Insulin Pen) NOVOLOG *MILD* ALGORITHM WITH MEALS BEDTIME SC Last administered on 12/05/18at 08:11; Admin Dose 1 UNIT; Start 12/04/18 at 18:00 Cyanocobalamin (Vitamin B12) 1,000 mcg DAILY PO Last administered on 12/06/18at 10:05; Admin Dose 1,000 MCG; Start 12/05/18 at 09:00 Miscellaneous Information (* Miscellaneous Pharmacy Order) 1 ea DAILY XX ; Start 12/05/18 at 09:00; Status UNV Fluconazole (Diflucan) 100 mg DAILY GTB Last administered on 12/06/18at 10:09; Admin Dose 100 MG; Start 12/05/18 at 18:00 Levalbuterol (Xopenex Neb) 1.25 mg Q4H RESP THERAPY PRN HHN SHORTNESS OF BREATH; Start 12/05/18 at 18:00 Atenolol (Tenormin) 12.5 mg BID PO Last administered on 12/06/18at 14:58; Admin Dose 12.5 MG; Start 12/05/18 at 21:00 Diltiazem HCl (Cardizem Iv) 5 mg Q4 PRN IV HR>110 Hold SBP<100; Start 12/05/18 at 20:00 Miscellaneous Information (*Order Clarification Bulletin) MEDICATION REQUIRES CLARIFICATION:CH... Q8H XX ; Start 12/06/18 at 11:00 Amoxicillin (Amoxicillin) 1,000 mg Q12 PO ; Start 12/06/18 at 21:00; Stop 12/21/18 at 10:00; Status UNV Clarithromycin (Biaxin) 500 mg BID PO ; Start 12/06/18 at 21:00; Stop 12/21/18 at 10:00 Pantoprazole (Protonix Tab) 40 mg BID@,18 PO ; Start 12/07/18 at 06:00; Status UNV Chlorhexidine Gluconate (Peridex) 15 ml AM@0930 MT ; Start 12/07/18 at 09:30 Dexamethasone (Decadron) 1 mg ONCE ONCE PO ; Start 12/06/18 at 23:00; Stop 12/06/18 at 23:01; Status UNV ABIMAEL MARTINEZ MD Dec 06, 2018 18:33
[2018-12-06] MEDS: LEVALBUTEROL (NEB) 1.25 MG/0.5 ML AMP HHN SCH (20:18)
[2018-12-06] MEDS: AMOXICILLIN 500 MG CAP PO SCH (20:50)
[2018-12-06] MEDS: FERROUS SULFATE (EC) 325 MG TAB PO SCH (20:51)
[2018-12-06] MEDS: clonAZEPAM 0.5 MG TAB PO SCH (20:51)
[2018-12-06] MEDS: EZETIMIBE 10 MG TAB PO SCH (20:51)
[2018-12-06] MEDS: MONTELUKAST 10 MG TAB PO SCH (20:51)
[2018-12-06] MEDS: ATORVASTATIN 80 MG TAB PO SCH (20:51)
[2018-12-06] MEDS: PRAMIPEXOLE 0.25 MG TAB PO SCH (21:00)
[2018-12-06] MEDS: CLARITHROMYCIN 500 MG TAB PO SCH (21:48)
[2018-12-06] MEDS ORDERED: DEXAMETHASONE 1 MG TAB PO ONE (23:00)
[2018-12-07] VITALS (9 sets, daily range): BP systolic 93–116; BP diastolic 55–58; PULSE 62–84; RESP 18–24
[2018-12-07] MEDS: LEVALBUTEROL (NEB) 1.25 MG/0.5 ML AMP HHN SCH ×4 (01:00→12:43)
[2018-12-07] MEDS ORDERED: PANTOPRAZOLE (EC) 40 MG TAB PO SCH (06:00)
[2018-12-07] MEDS: LEVOTHYROXINE 175 MCG TAB PO SCH (06:02)
--- NOTE | 2018-12-07 08:02 | CONS ---
Consult Date/Type/Reason Admit Date/Time Dec 04, 2018 at 12:22 Initial Consult Date 12/06/18 Requesting Provider: ABIMAEL MARTINEZ MD Date/Time of Note DATE: 12/07/18 TIME: 07:58 Subjective Pt passing some clotted blood from rectum. Denies lightheadedness, sob, or chest pain. Objective Vitals Vital Signs Date Temp Pulse Resp B/P (MAP) Pulse Ox O2 O2 Flow FiO2 Time Delivery Rate 12/07/18 98.5 75 18 104/56 93 Nasal 07:08 (72) Cannula 12/07/18 30 05:17 12/06/18 5.0 23:37 Intake and Output 12/06/18 12/06/18 12/07/18 1515:00 23:00 07:00 IntakeIntake Total 1860 ml 250 ml BalanceBalance 1860 ml 250 ml Exam NAD/A&Ox4 Dry skin OP clear Anicteric RRR no m/g/r Mild wheezing Mild distension, +BS, NT, no HSM No c/c/e Results/Medications Result Diagram: 12/06/1852012/06/18520 Results 24 hrs Laboratory Tests Test 12/06/18 10:13 12/06/18 11:47 12/06/18 17:05 12/06/18 21:46 Bedside Glucose 139 131 105 113 Test 12/07/18 07:43 Bedside Glucose 156 Home Meds Reported Medications Gabapentin* (Gabapentin*) 300 Mg Capsule, 300 MG PO BID, #60 CAP 12/04/18 Pramipexole* (Pramipexole*) 0.25 Mg Tablet, 0.25 MG PO HS, TAB 12/04/18 Albuterol Sulfate* (Ventolin HFA*) 18 Gm Hfa.aer.ad, 2 PUFF INHALATION Q4H, #1 I NHALER 12/04/18 Salmeterol Xinaf-Fluticasone* (Advair*) 500/50 Diskus Inhaler, 1 INH INHALATION BID, #1 INHALER 12/04/18 Cyanocobalamin* (Vitamin B12*) 500 Mcg Tab, 5000 MCG PO DAILY, TAB 12/04/18 Atorvastatin* (Atorvastatin*) 80 Mg Tablet, 80 MG PO QHS, #30 TAB 12/04/18 Cetirizine Hcl* (Cetirizine Hcl*) 10 Mg Tab.chew, 10 MG PO DAILY, #30 TAB 12/04/18 Losartan Potassium* (Losartan Potassium*) 25 Mg Tablet, 25 MG PO DAILY, TAB 12/04/18 Ezetimibe* (Zetia*) 10 Mg Tablet, 10 MG PO HS, TAB 12/04/18 Fluoxetine Hcl* (Fluoxetine Hcl*) 40 Mg Capsule, 40 MG PO DAILY, CAP 12/04/18 Levothyroxine Sodium* (Levoxyl*) 175 Mcg Tablet, 175 MCG PO BEFORE BREAKFAST, #30 TAB 12/04/18 Montelukast Sodium* (Montelukast Sodium*) 10 Mg Tablet, 10 MG PO QHS, #30 TAB 12/04/18 Roflumilast (Daliresp) 500 Mcg Tablet, 500 MCG PO DAILY, TAB 12/04/18 Clonazepam* (Clonazepam*) 0.5 Mg Tablet, 0.5 MG PO QHS, TAB 12/04/18 Varenicline Tartrate (Chantix) 1 Mg Tablet, 1 MG PO BID, TAB 12/04/18 Medications Current Medications Atorvastatin Calcium (Lipitor) 80 mg QHS PO Last administered on 12/06/18at 20:51; Admin Dose 80 MG; Start 12/04/18 at 21:00 Clonazepam (Klonopin) 0.5 mg QHS PO Last administered on 12/06/18at 20:51; Admin Dose 0.5 MG; Start 12/04/18 at 21:00 EZETIMIBE (Zetia) 10 mg HS PO Last administered on 12/06/18at 20:51; Admin Dose 10 MG; Start 12/04/18 at 21:00 Fluoxetine HCl (Prozac) 40 mg DAILY PO Last administered on 12/06/18at 10:05; Admin Dose 40 MG; Start 12/05/18 at 09:00 Gabapentin (Neurontin) 300 mg BID PO Last administered on 12/06/18at 20:51; Admin Dose 300 MG; Start 12/04/18 at 21:00 Levothyroxine Sodium (Synthroid) 175 mcg BEFORE BREAKFAST PO Last administered on 12/07/18at 06:02; Admin Dose 175 MCG; Start 12/05/18 at 07:00 Losartan Potassium (Cozaar) 25 mg DAILY PO Last administered on 12/06/18at 10:07; Admin Dose 25 MG; Start 12/05/18 at 09:00 Montelukast Sodium (Singulair) 10 mg QHS PO Last administered on 12/06/18 20:51; Admin Dose 10 MG; Start 12/04/18 at 21:00 Pramipexole (Mirapex) 0.25 mg HS PO Last administered on 12/06/18 21:00; Admin Dose 0.25 MG; Start 12/04/18 at 21:00 Roflumilast (Daliresp) 500 mcg DAILY PO Last administered on 12/06/18 10:08; Admin Dose 500 MCG; Start 12/05/18 at 09:00 Loratadine (Claritin) 10 mg DAILY PO Last administered on 12/06/18 10:05; Admin Dose 10 MG; Start 12/05/18 at 09:00 Fluticasone/ Vilanterol (Breo Ellipta 200-25 Mcg Inh) 1 inh DAILY INH Last administered on 12/06/18 10:09; Admin Dose 1 INH; Start 12/05/18 at 09:00 IV Flush (NS 3 ml) 3 ml PER PROTOCOL IV ; Start 12/04/18 at 14:00 Lorazepam (Ativan) 0.5 mg Q8H PRN PO .ANXIETY; Start 12/04/18 at 14:00 Ondansetron HCl (Zofran Inj) 4 mg Q6H PRN IV NAUSEA/VOMITING Last administered on 12/05/18 21:05; Admin Dose 4 MG; Start 12/04/18 at 14:00 Nitroglycerin (Nitroglycerin (Sl Tab) 0.4 Mg) 1 tab Q5M PRN SL .CHEST PAIN; Start 12/04/18 at 14:00 Acetaminophen (Tylenol Tab) 650 mg Q6H PRN PO .PAIN 1-3 OR TEMP; Start 12/04/18 at 14:00 Zolpidem Tartrate (Ambien) 5 mg QHS PRN PO .INSOMNIA; Start 12/04/18 at 14:00 Insulin Aspart (Novolog Insulin Pen) NOVOLOG *MILD* ALGORITHM WITH MEALS BEDTIME SC Last administered on 12/05/18 08:11; Admin Dose 1 UNIT; Start 12/04/18 at 18:00 Cyanocobalamin (Vitamin B12) 1,000 mcg DAILY PO Last administered on 12/06/18 10:05; Admin Dose 1,000 MCG; Start 12/05/18 at 09:00 Miscellaneous Information (* Miscellaneous Pharmacy Order) 1 ea DAILY XX ; Start 12/05/18 at 09:00; Status UNV Fluconazole (Diflucan) 100 mg DAILY GTB Last administered on 12/06/18 10:09; Admin Dose 100 MG; Start 12/05/18 at 18:00 Atenolol (Tenormin) 12.5 mg BID PO Last administered on 12/06/18 20:52; Admin Dose 12.5 MG; Start 12/05/18 at 21:00 Diltiazem HCl (Cardizem Iv) 5 mg Q4 PRN IV HR>110 Hold SBP<100; Start 12/05/18 at 20:00 Miscellaneous Information (*Order Clarification Bulletin) MEDICATION REQUIRES CLARIFICATION:CH... Q8H XX ; Start 12/06/18 at 11:00 Amoxicillin (Amoxicillin) 1,000 mg Q12 PO Last administered on 12/06/18at 20:50; Admin Dose 1,000 MG; Start 12/06/18 at 21:00; Stop 12/21/18 at 10:00 Clarithromycin (Biaxin) 500 mg BID PO Last administered on 12/06/18 21:48; Admin Dose 500 MG; Start 12/06/18 at 21:00; Stop 12/21/18 at 10:00 Pantoprazole (Protonix Tab) 40 mg BID@06,18 PO Last administered on 12/07/18at 06:02; Admin Dose 40 MG; Start 12/07/18 at 06:00 Chlorhexidine Gluconate (Peridex) 15 ml AM@0930 MT ; Start 12/07/18 at 09:30 Ferrous Sulfate (Ferrous Sulfate (Ec)) 325 mg TID PO Last administered on 12/06/18 20:51; Admin Dose 325 MG; Start 12/06/18 at 21:00 Levalbuterol (Xopenex Neb) 1.25 mg Q4H WHILE AWAKE HHN Last administered on 12/06/18 20:18; Admin Dose 1.25 MG; Start 12/06/18 at 21:00 Assessment/Plan Assessment/Plan (Daily) 73yo female with h/o iron def anemia and newly diagnosed colon cancer. Left adrenal mass. Being ruled out for Argyle syndrome with dexamethasone suppression test this am. MRI abdomen pending as well. -Further medical oncology recommendations once pt has undergone surgery to discuss post-surgical treatment -D/c with po iron but if cannot tolerate then will have pt be seen by Dr. Van for IV iron. VERENA JO Dec 07, 2018 08:02
[2018-12-07] MEDS: INSULIN ASPART [NOVOLOG] 3 ML PEN SC SCH ×2 (08:10→12:00)
[2018-12-07] MEDS: ROFLUMILAST 500 MCG TABLET PO SCH (08:28)
[2018-12-07] MEDS: FLUOXETINE 20 MG CAP PO SCH (08:28)
[2018-12-07] MEDS: AMOXICILLIN 500 MG CAP PO SCH (08:28)
[2018-12-07] MEDS: CYANOCOBALAMIN 500 MCG TAB PO SCH (08:28)
[2018-12-07] MEDS: CLARITHROMYCIN 500 MG TAB PO SCH (08:28)
[2018-12-07] MEDS: FLUCONAZOLE 100 MG TAB GTB SCH (08:28)
[2018-12-07] MEDS: FERROUS SULFATE (EC) 325 MG TAB PO SCH ×2 (08:29→13:52)
[2018-12-07] MEDS: ATENOLOL 25 MG TAB PO SCH (08:29)
[2018-12-07] MEDS: GABAPENTIN 300 MG CAP PO SCH (08:29)
[2018-12-07] MEDS: LORATADINE 10 MG TAB PO SCH (08:29)
[2018-12-07] MEDS: FLUTICASONE/VILANTEROL 200-25 INH DEVICE INH SCH (08:30)
[2018-12-07] MEDS: LOSARTAN 25 MG TAB PO SCH (08:30)
[2018-12-07] MEDS ORDERED: FAMOTIDINE 20 MG TAB PO SCH (09:00)
[2018-12-07] MEDS ORDERED: CHLORHEXIDINE GLUCONATE 15 ML UD CUP MT SCH (09:30)
--- NOTE | 2018-12-07 15:41 | CONS ---
Assessment/Plan Assessment/Plan Assessment/Plan (Daily) SVT Hypertension Anemia Colonic mass. Diabetes mellitus. 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 Asthma. Chronic obstructive pulmonary disease. Dyslipidemia. Continue atenolol Continue Losartan Continue Lipitor Continue Zetia Continue Insulin Continue Nebs Continue Levothyroxine Continue antibiotics Consultation Date/Type/Reason Admit Date/Time Dec 04, 2018 at 12:22 Type of Consult Cardiology Date/Time of Note DATE: 12/07/18 TIME: 15:38 Past Medical History Home Meds Reported Medications Gabapentin* (Gabapentin*) 300 Mg Capsule, 300 MG PO BID, #60 CAP 12/04/18 Pramipexole* (Pramipexole*) 0.25 Mg Tablet, 0.25 MG PO HS, TAB 12/04/18 Albuterol Sulfate* (Ventolin HFA*) 18 Gm Hfa.aer.ad, 2 PUFF INHALATION Q4H, #1 INHALER 12/04/18 Cyanocobalamin* (Vitamin B12*) 500 Mcg Tab, 5000 MCG PO DAILY, TAB 12/04/18 Atorvastatin* (Atorvastatin*) 80 Mg Tablet, 80 MG PO QHS, #30 TAB 12/04/18 Cetirizine Hcl* (Cetirizine Hcl*) 10 Mg Tab.chew, 10 MG PO DAILY, #30 TAB 12/04/18 Losartan Potassium* (Losartan Potassium*) 25 Mg Tablet, 25 MG PO DAILY, TAB 12/04/18 Ezetimibe* (Zetia*) 10 Mg Tablet, 10 MG PO HS, TAB 12/04/18 Fluoxetine Hcl* (Fluoxetine Hcl*) 40 Mg Capsule, 40 MG PO DAILY, CAP 12/04/18 Levothyroxine Sodium* (Levoxyl*) 175 Mcg Tablet, 175 MCG PO BEFORE BREAKFAST, #30 TAB 12/04/18 Montelukast Sodium* (Montelukast Sodium*) 10 Mg Tablet, 10 MG PO QHS, #30 TAB 12/04/18 Roflumilast (Daliresp) 500 Mcg Tablet, 500 MCG PO DAILY, TAB 12/04/18 Clonazepam* (Clonazepam*) 0.5 Mg Tablet, 0.5 MG PO QHS, TAB 12/04/18 Varenicline Tartrate (Chantix) 1 Mg Tablet, 1 MG PO BID, TAB 6/12/19 Discontinued Reported Medications Salmeterol Xinaf-Fluticasone* (Advair*) 500/50 Diskus Inhaler, 1 INH INHALATION BID, #1 INHALER 12/04/18 Medications Current Medications Atorvastatin Calcium (Lipitor) 80 mg QHS PO Last administered on 12/06/18 20:51; Admin Dose 80 MG; Start 12/04/18 at 21:00 Clonazepam (Klonopin) 0.5 mg QHS PO Last administered on 12/06/18 20:51; Admin Dose 0.5 MG; Start 12/04/18 at 21:00 EZETIMIBE (Zetia) 10 mg HS PO Last administered on 12/06/18 20:51; Admin Dose 10 MG; Start 12/04/18 at 21:00 Fluoxetine HCl (Prozac) 40 mg DAILY PO Last administered on 12/07/18 08:28; Admin Dose 40 MG; Start 12/05/18 at 09:00 Gabapentin (Neurontin) 300 mg BID PO Last administered on 12/07/18 08:29; Admin Dose 300 MG; Start 12/04/18 at 21:00 Levothyroxine Sodium (Synthroid) 175 mcg BEFORE BREAKFAST PO Last administered on 12/07/18 06:02; Admin Dose 175 MCG; Start 12/05/18 at 07:00 Losartan Potassium (Cozaar) 25 mg DAILY PO Last administered on 12/07/18 08:30; Admin Dose 25 MG; Start 12/05/18 at 09:00 Montelukast Sodium (Singulair) 10 mg QHS PO Last administered on 12/06/18 20:51; Admin Dose 10 MG; Start 12/04/18 at 21:00 Pramipexole (Mirapex) 0.25 mg HS PO Last administered on 12/06/18 21:00; Admin Dose 0.25 MG; Start 12/04/18 at 21:00 Roflumilast (Daliresp) 500 mcg DAILY PO Last administered on 12/07/18 08:28; Admin Dose 500 MCG; Start 12/05/18 at 09:00 Loratadine (Claritin) 10 mg DAILY PO Last administered on 12/07/18 08:29; Admin Dose 10 MG; Start 12/05/18 at 09:00 Fluticasone/ Vilanterol (Breo Ellipta 200-25 Mcg Inh) 1 inh DAILY INH Last administered on 12/07/18 08:30; Admin Dose 1 INH; Start 12/05/18 at 09:00 IV Flush (NS 3 ml) 3 ml PER PROTOCOL IV ; Start 12/04/18 at 14:00 Lorazepam (Ativan) 0.5 mg Q8H PRN PO .ANXIETY; Start 12/04/18 at 14:00 Ondansetron HCl (Zofran Inj) 4 mg Q6H PRN IV NAUSEA/VOMITING Last administered on 12/05/18at 21:05; Admin Dose 4 MG; Start 12/04/18 at 14:00 Nitroglycerin (Nitroglycerin (Sl Tab) 0.4 Mg) 1 tab Q5M PRN SL .CHEST PAIN; Start 12/04/18 at 14:00 Acetaminophen (Tylenol Tab) 650 mg Q6H PRN PO .PAIN 1-3 OR TEMP; Start 12/04/18 at 14:00 Zolpidem Tartrate (Ambien) 5 mg QHS PRN PO .INSOMNIA; Start 12/04/18 at 14:00 Insulin Aspart (Novolog Insulin Pen) NOVOLOG *MILD* ALGORITHM WITH MEALS BEDTIME SC Last administered on 12/07/18 08:10; Admin Dose 1 UNIT; Start 12/04/18 at 18:00 Cyanocobalamin (Vitamin B12) 1,000 mcg DAILY PO Last administered on 12/07/18 08:28; Admin Dose 1,000 MCG; Start 12/05/18 at 09:00 Miscellaneous Information (* Miscellaneous Pharmacy Order) 1 ea DAILY XX ; Start 12/05/18 at 09:00; Status UNV Fluconazole (Diflucan) 100 mg DAILY GTB Last administered on 12/07/18 08:28; Admin Dose 100 MG; Start 12/05/18 at 18:00 Atenolol (Tenormin) 12.5 mg BID PO Last administered on 12/07/18 08:29; Admin Dose 12.5 MG; Start 12/05/18 at 21:00 Diltiazem HCl (Cardizem Iv) 5 mg Q4 PRN IV HR>110 Hold SBP<100; Start 12/05/18 at 20:00 Miscellaneous Information (*Order Clarification Bulletin) MEDICATION REQUIRES CLARIFICATION:CH... Q8H XX ; Start 12/06/18 at 11:00 Amoxicillin (Amoxicillin) 1,000 mg Q12 PO Last administered on 12/07/18 08:28; Admin Dose 1,000 MG; Start 12/06/18 at 21:00; Stop 12/21/18 at 10:00 Clarithromycin (Biaxin) 500 mg BID PO Last administered on 12/07/18 08:28; Admin Dose 500 MG; Start 12/06/18 at 21:00; Stop 12/21/18 at 10:00 Pantoprazole (Protonix Tab) 40 mg BID@06,18 PO Last administered on 12/07/18 06:02; Admin Dose 40 MG; Start 12/07/18 at 06:00 Chlorhexidine Gluconate (Peridex) 15 ml AM@0930 MT Last administered on 12/07/18 08:43; Admin Dose 15 ML; Start 12/07/18 at 09:30 Ferrous Sulfate (Ferrous Sulfate (Ec)) 325 mg TID PO Last administered on 12/07/18 13:52; Admin Dose 325 MG; Start 12/06/18 at 21:00 Levalbuterol (Xopenex Neb) 1.25 mg Q4H WHILE AWAKE HHN Last administered on 12/07/18 12:43; Admin Dose 1.25 MG; Start 12/06/18 at 21:00 Allergies: Coded Allergies: No Known Allergy (Unverified , 12/04/18) Past Surgical History Past Surgical Hx: other (c-sect, T&A) Social History Alcohol Use: none Smoking Status: Current some day smoker Drug Use: none Exam/Review of Systems Vital Signs Vitals Vital Signs Date Temp Pulse Resp B/P (MAP) Pulse Ox O2 O2 Flow FiO2 Time Delivery Rate 12/07/18 98.0 79 20 116/58 96 Nasal 15:16 (77) Cannula 12/07/18 12:45 12/06/18 5.0 23:37 Intake and Output 12/06/18 12/06/18 12/07/18 1515:00 23:00 07:00 IntakeIntake Total 1860 ml 250 ml BalanceBalance 1860 ml 250 ml Exam Constitutional: alert, oriented Head: normocephalic, atraumatic Respiratory: clear to auscultation Cardiovascular: regular rate and rhythm (no m/r/g) Gastrointestinal: soft, non-tender Extremities: normal pulses Labs Result Diagram: 12/07/18 0802 12/06/18 05 Results 24hrs Laboratory Tests Test 12/06/18 17:05 12/06/18 21:46 12/07/18 07:43 12/07/18 08:02 Bedside Glucose 105 113 156 White Blood Count 10.5 # Red Blood Count 4.25 Hemoglobin 8.6 L Hematocrit 29.2 L Mean Corpuscular 68.7 L Volume Mean Corpuscular 20.2 L Hemoglobin Mean Corpuscular 29.5 L Hemoglobin Concent Red Cell 24.6 H Distribution Width Platelet Count 333 Mean Platelet Volume 9.8 Immature 0.400 Granulocytes % Neutrophils % 87.9 H Lymphocytes % 7.5 L Monocytes % 4.0 Eosinophils % 0.0 Basophils % 0.2 Nucleated Red Blood 0.0 Cells % Immature 0.040 H Granulocytes # Neutrophils # 9.3 H Lymphocytes # 0.8 Monocytes # 0.4 Eosinophils # 0.0 Basophils # 0.0 Nucleated Red Blood 0.0 Cells # CA 19-9 Antigen 8.4 Random Cortisol 3.0 Medications Medications Current Medications Atorvastatin Calcium (Lipitor) 80 mg QHS PO Last administered on 12/06/18 20:51; Admin Dose 80 MG; Start 12/04/18 at 21:00 Clonazepam (Klonopin) 0.5 mg QHS PO Last administered on 12/06/18 20:51; Admin Dose 0.5 MG; Start 12/04/18 at 21:00 EZETIMIBE (Zetia) 10 mg HS PO Last administered on 12/06/18 20:51; Admin Dose 10 MG; Start 12/04/18 at 21:00 Fluoxetine HCl (Prozac) 40 mg DAILY PO Last administered on 12/07/18 08:28; Admin Dose 40 MG; Start 12/05/18 at 09:00 Gabapentin (Neurontin) 300 mg BID PO Last administered on 12/07/18 08:29; Admin Dose 300 MG; Start 12/04/18 at 21:00 Levothyroxine Sodium (Synthroid) 175 mcg BEFORE BREAKFAST PO Last administered on 12/07/18 06:02; Admin Dose 175 MCG; Start 12/05/18 at 07:00 Losartan Potassium (Cozaar) 25 mg DAILY PO Last administered on 12/07/18 08:30; Admin Dose 25 MG; Start 12/05/18 at 09:00 Montelukast Sodium (Singulair) 10 mg QHS PO Last administered on 12/06/18 20:51; Admin Dose 10 MG; Start 12/04/18 at 21:00 Pramipexole (Mirapex) 0.25 mg HS PO Last administered on 12/06/18 21:00; Admin Dose 0.25 MG; Start 12/04/18 at 21:00 Roflumilast (Daliresp) 500 mcg DAILY PO Last administered on 12/07/18 08:28; Admin Dose 500 MCG; Start 12/05/18 at 09:00 Loratadine (Claritin) 10 mg DAILY PO Last administered on 12/07/18 08:29; Admin Dose 10 MG; Start 12/05/18 at 09:00 Fluticasone/ Vilanterol (Breo Ellipta 200-25 Mcg Inh) 1 inh DAILY INH Last administered on 12/07/18 08:30; Admin Dose 1 INH; Start 12/05/18 at 09:00 IV Flush (NS 3 ml) 3 ml PER PROTOCOL IV ; Start 12/04/18 at 14:00 Lorazepam (Ativan) 0.5 mg Q8H PRN PO .ANXIETY; Start 12/04/18 at 14:00 Ondansetron HCl (Zofran Inj) 4 mg Q6H PRN IV NAUSEA/VOMITING Last administered on 12/05/18 21:05; Admin Dose 4 MG; Start 12/04/18 at 14:00 Nitroglycerin (Nitroglycerin (Sl Tab) 0.4 Mg) 1 tab Q5M PRN SL .CHEST PAIN; Start 12/04/18 at 14:00 Acetaminophen (Tylenol Tab) 650 mg Q6H PRN PO .PAIN 1-3 OR TEMP; Start 12/04/18 at 14:00 Zolpidem Tartrate (Ambien) 5 mg QHS PRN PO .INSOMNIA; Start 12/04/18 at 14:00 Insulin Aspart (Novolog Insulin Pen) NOVOLOG *MILD* ALGORITHM WITH MEALS BEDTIME SC Last administered on 12/07/18 08:10; Admin Dose 1 UNIT; Start 12/04/18 at 18:00 Cyanocobalamin (Vitamin B12) 1,000 mcg DAILY PO Last administered on 12/07/18 08:28; Admin Dose 1,000 MCG; Start 12/05/18 at 09:00 Miscellaneous Information (* Miscellaneous Pharmacy Order) 1 ea DAILY XX ; Start 12/05/18 at 09:00; Status UNV Fluconazole (Diflucan) 100 mg DAILY GTB Last administered on 12/07/18 08:28; Admin Dose 100 MG; Start 12/05/18 at 18:00 Atenolol (Tenormin) 12.5 mg BID PO Last administered on 12/07/18 08:29; Admin Dose 12.5 MG; Start 12/05/18 at 21:00 Diltiazem HCl (Cardizem Iv) 5 mg Q4 PRN IV HR>110 Hold SBP<100; Start 12/05/18 at 20:00 Miscellaneous Information (*Order Clarification Bulletin) MEDICATION REQUIRES CLARIFICATION:CH... Q8H XX ; Start 12/06/18 at 11:00 Amoxicillin (Amoxicillin) 1,000 mg Q12 PO Last administered on 12/07/18 08:28; Admin Dose 1,000 MG; Start 12/06/18 at 21:00; Stop 12/21/18 at 10:00 Clarithromycin (Biaxin) 500 mg BID PO Last administered on 12/07/18 08:28; Admin Dose 500 MG; Start 12/06/18 at 21:00; Stop 12/21/18 at 10:00 Pantoprazole (Protonix Tab) 40 mg BID@06,18 PO Last administered on 12/07/18at 06:02; Admin Dose 40 MG; Start 12/07/18 at 06:00 Chlorhexidine Gluconate (Peridex) 15 ml AM@0930 MT Last administered on 12/07/18 08:43; Admin Dose 15 ML; Start 12/07/18 at 09:30 Ferrous Sulfate (Ferrous Sulfate (Ec)) 325 mg TID PO Last administered on 12/07/18at 13:52; Admin Dose 325 MG; Start 12/06/18 at 21:00 Levalbuterol (Xopenex Neb) 1.25 mg Q4H WHILE AWAKE HHN Last administered on 12/07/18at 12:43; Admin Dose 1.25 MG; Start 12/06/18 at 21:00 EMMETT BRENNER M.D. Dec 07, 2018 15:41
--- NOTE | 2018-12-07 17:19 | DS ---
Date/Time of Note Date/Time of Note DATE: 12/07/18 TIME: 17:17 Discharge Summary Admission/Discharge Info Admit Date/Time Dec 04, 2018 at 12:22 Discharge Date/Time 12/07/18 3PM Discharge Diagnosis Anemia, Colon cancer, SVT, H pylori, Pancreatic cysts, Gallbldder wall thickening, Adrenal nodule Patient Condition: Good Consults GI, oncology/hematology, Cardiology, surgical oncology Procedures EGD, colonoscopy Hx of Present Illness 73 y/o C F w/ h/o COPD/asthma, hypothyroidism, hyperlipidemia, diet-controlled T2DM, asymptomatic microscopic hematuria, essential tremor, depression, and DANISH w/ normal lab evaluation with PMD about 5 months ago. She had outpatient work up with pulmonology which included a CBC. Hgb found to be 7. On presentation she had chronic SOB with new onset dyspnea on exertion. She was admitted for blood transfusion and in house endoscopies. Hospital Course After admission, patient had EGD and colonoscopy and was found to have adenocarcinoma of the colon and H pylori. She was started on triple therapy for H pylori and hematology/oncology was consulted for colorectal cancer. Her hospital course was complicated by SVT for which cardiology was consulted and she was started on atenolol and albuterol was switched to xopenex with resolution of SVT. She had CT C/A/P done for staging which showed pancreatic mass, adrenal mass and gallbladder wall thickening. 1 mg DST was equivocal (cortisol was 3 after 1 mg dexamethasone), pancreatic mass appears to be cysts on MRCP/MR abdomen and adrenal nodule appears to be lipid rich adrenal adenoma on MRI. CA 19-9 came back normal. She will f/u with PMD, surgical oncology, oncology and other specialities in the outpatient setting for further management of her medical conditions. Home Meds Reported Medications Gabapentin* (Gabapentin*) 300 Mg Capsule, 300 MG PO BID, #60 CAP 12/04/18 Pramipexole* (Pramipexole*) 0.25 Mg Tablet, 0.25 MG PO HS, TAB 12/04/18 Albuterol Sulfate* (Ventolin HFA*) 18 Gm Hfa.aer.ad, 2 PUFF INHALATION Q4H, #1 INHALER 12/04/18 Cyanocobalamin* (Vitamin B12*) 500 Mcg Tab, 5000 MCG PO DAILY, TAB 6/12/19 Atorvastatin* (Atorvastatin*) 80 Mg Tablet, 80 MG PO QHS, #30 TAB 12/04/18 Cetirizine Hcl* (Cetirizine Hcl*) 10 Mg Tab.chew, 10 MG PO DAILY, #30 TAB 12/04/18 Losartan Potassium* (Losartan Potassium*) 25 Mg Tablet, 25 MG PO DAILY, TAB 12/04/18 Ezetimibe* (Zetia*) 10 Mg Tablet, 10 MG PO HS, TAB 12/04/18 Fluoxetine Hcl* (Fluoxetine Hcl*) 40 Mg Capsule, 40 MG PO DAILY, CAP 12/04/18 Levothyroxine Sodium* (Levoxyl*) 175 Mcg Tablet, 175 MCG PO BEFORE BREAKFAST, #30 TAB 12/04/18 Montelukast Sodium* (Montelukast Sodium*) 10 Mg Tablet, 10 MG PO QHS, #30 TAB 12/04/18 Roflumilast (Daliresp) 500 Mcg Tablet, 500 MCG PO DAILY, TAB 12/04/18 Clonazepam* (Clonazepam*) 0.5 Mg Tablet, 0.5 MG PO QHS, TAB 12/04/18 Varenicline Tartrate (Chantix) 1 Mg Tablet, 1 MG PO BID, TAB 12/04/18 Discontinued Reported Medications Salmeterol Xinaf-Fluticasone* (Advair*) 500/50 Diskus Inhaler, 1 INH INHALATION BID, #1 INHALER 12/04/18 Primary Care Provider Eddie Steele MD Time spent on discharge: > 30 minutes Pending Labs Laboratory Tests Test 12/06/18 21:46 12/07/18 07:43 12/07/18 08:01 12/07/18 08:02 Bedside 113 156 Glucose mg/dL (70-220) mg/dL (70-220) Alpha 3.99 Fetoprotein IU/L (0.00-7.2 1) Carcinoembryoni 5.1 c Antigen ng/ml (0.0-5.0 ) CA 19-9 7.6 8.4 Antigen U/ml (0.0-37.0 U/ml (0.0-37.0 ) ) White Blood 10.5 Count 10^3/ul (4.8-1 0.8) Red Blood 4.25 Count 10^6/ul (4.20- 5.40) Hemoglobin 8.6 g/dl (12.0-16. 0) Hematocrit 29.2 % (37.0-47.0) Mean 68.7 Corpuscular fl (82.0-101.0 Volume ) Mean 20.2 Corpuscular pg (29.0-33.0) Hemoglobin Mean 29.5 Corpuscular g/dl (32.0-37. Hemoglobin Conc 0) ent Red Cell 24.6 Distribution % (11.5-14.5) Width Platelet Count 333 10^3/UL (140-4 15) Mean Platelet 9.8 Volume fl (7.4-10.4) Immature 0.400 Granulocytes % % (0.001-0.429 ) Neutrophils % 87.9 % (39.0-77.0) Lymphocytes % 7.5 % (15.0-51.0) Monocytes % 4.0 % (0.0-11.0) Eosinophils % 0.0 % (0.0-7.0) Basophils % 0.2 % (0.0-2.0) Nucleated Red 0.0 Blood Cells % /100WBC (0.0-0 .0) Immature 0.040 Granulocytes # 10^3/ul (0.0-0 .031) Neutrophils # 9.3 10^3/ul (1.6-7 .5) Lymphocytes # 0.8 10^3/ul (0.8-2 .9) Monocytes # 0.4 10^3/ul (0.3-0 .9) Eosinophils # 0.0 10^3/ul (0.0-0 .5) Basophils # 0.0 10^3/ul (0.0-0 .1) Nucleated Red 0.0 Blood Cells # 10^3/ul (0.0-0 .0) Random Cortisol 3.0 ug/dl TANYA MOFFETT MD Dec 07, 2018 17:19
== END 2018-12-07 16:05 | disposition home or self-care (01) | DRG 375 ==
LOC: E/R 09:39 → 6WM 12:22
PROVIDERS: ADMIT Internal Medicine; ATTEND Internal Medicine
PROC: 0DBK8ZX Excision of Ascending Colon, Via Natural or Artificial Opening Endoscopic, Diagnostic (ICD-10-PCS; principal; 2018-12-05 16:00)
PROC: 30233N1 Transfusion of Nonautologous Red Blood Cells into Peripheral Vein, Percutaneous Approach (ICD-10-PCS; 2018-12-05 16:00)
PROC: 0DB58ZX Excision of Esophagus, Via Natural or Artificial Opening Endoscopic, Diagnostic (ICD-10-PCS; 2018-12-05 16:00)
PROC: 0DB68ZX Excision of Stomach, Via Natural or Artificial Opening Endoscopic, Diagnostic (ICD-10-PCS; 2018-12-05 16:00)
DX: C18.2 Malignant neoplasm of ascending colon (principal); I47.1 Supraventricular tachycardia; B37.81 Candidal esophagitis; D50.0 Iron deficiency anemia secondary to blood loss (chronic); E11.8 Type 2 diabetes mellitus with unspecified complications; Z72.0 Tobacco use; J44.9 Chronic obstructive pulmonary disease, unspecified; I10 Essential (primary) hypertension; K25.9 Gastric ulcer, unspecified as acute or chronic, without hemorrhage or perforation; K62.1 Rectal polyp; G47.33 Obstructive sleep apnea (adult) (pediatric); F33.41 Major depressive disorder, recurrent, in partial remission; E06.3 Autoimmune thyroiditis
CPT/HCPCS: 36415; 36430; 71045; 71260; 74177; 74183; 80048; 80053; 80061; 82105; 82378; 82533; 82962; 83036; 84443; 84484; 85025; 85610; 85730; 86301; 86644; 86850; 86900; 86901; 86920; 88305; 88312; 88313; 93005; 93306; 94640; 94660; 96374; C9113; J1815; J2405; J2765; J3480; J7040; P9016; Q9967

== ENCOUNTER 2019-01-03 08:31 | Day surgery (SDC) | payer MEDICARE, OTHER ==
[~2019-01-03] VITALS: Ht 162.6 cm; Wt 63.2 kg
[2019-01-03] VITALS (18 sets, daily range): BP systolic 126–196; BP diastolic 59–92; PULSE 65–104; RESP 18–27; Ht 162.6 cm; Wt 63.2 kg
[~2019-01-03 08:31] MED LIST: ALBU18HF INHALATION; ATOR-2 PO; CETI10TA34 PO; CLON0.5T14 PO; CYAN500T46 PO; EZET10TA31 PO; FLUO40CA PO; GABA300C16 PO; LEVO175T38 PO; LOSA25TA12 PO; MONT10TA24 PO; PRAM0.25 PO; ROFL500T6 PO; VARE1TAB20 PO
[2019-01-03] MEDS ORDERED: ADV25050 INHALATION (09:41)
[2019-01-03] MEDS ORDERED: VARE0.5T PO (09:41)
[2019-01-03] MEDS ORDERED: LACTATED RINGER'S 1,000 ML IV SCH (10:00)
--- NOTE | 2019-01-03 10:22 | PREAC ---
Date/Time of Note Date/Time of Note DATE: 01/03/19 TIME: 10:20 Anesthesia Eval and Record Evaluation Time Pre-Procedure Interview DATE: 01/03/19 TIME: 10:20 Age 73 Sex female NPO: 8 hrs Preoperative diagnosis Generalized abdominal pain Planned procedure ERCP Past Medical History Past Medical History: Includes Cardio: HTN, Dyslipidemia Endo: Hypothyroid Pulm: Smoking Hx, COPD, Sleep Apnea, Home CPAP, Asthma Heme: Anemia Psych: Depression Surgery & Anesthesia Issues No known issue Meds Anticoagulation: No Beta Britney within 24 hr: No Reason Beta Britney not given: Pt. not on B-Britney Reported Medications Salmeterol Xinaf/Fluticasone* (Advair*) 250-50 Diskus Inhaler, 1 INH INHALATION BID, #1 INHALER 01/03/19 Varenicline Tartrate (Chantix) 0.5 Mg Tablet, 0.5 MG PO DAILY, TAB 01/03/19 Gabapentin* (Gabapentin*) 300 Mg Capsule, 300 MG PO BID, #60 CAP 12/04/18 Pramipexole* (Pramipexole*) 0.25 Mg Tablet, 0.25 MG PO HS, TAB 12/04/18 Albuterol Sulfate* (Ventolin HFA*) 18 Gm Hfa.aer.ad, 2 PUFF INHALATION Q4H, #1 INHALER 12/04/18 Atorvastatin* (Atorvastatin*) 80 Mg Tablet, 80 MG PO QHS, #30 TAB 12/04/18 Cetirizine Hcl* (Cetirizine Hcl*) 10 Mg Tab.chew, 10 MG PO DAILY, #30 TAB 12/04/18 Losartan Potassium* (Losartan Potassium*) 25 Mg Tablet, 25 MG PO DAILY, TAB 12/04/18 Ezetimibe* (Zetia*) 10 Mg Tablet, 10 MG PO HS, TAB 12/04/18 Fluoxetine Hcl* (Fluoxetine Hcl*) 40 Mg Capsule, 40 MG PO DAILY, CAP 12/04/18 Levothyroxine Sodium* (Levoxyl*) 175 Mcg Tablet, 175 MCG PO BEFORE BREAKFAST, #30 TAB 12/04/18 Montelukast Sodium* (Montelukast Sodium*) 10 Mg Tablet, 10 MG PO QHS, #30 TAB 12/04/18 Roflumilast (Daliresp) 500 Mcg Tablet, 500 MCG PO DAILY, TAB 12/04/18 Clonazepam* (Clonazepam*) 0.5 Mg Tablet, 0.5 MG PO QHS, TAB 12/04/18 Discontinued Reported Medications Cyanocobalamin* (Vitamin B12*) 500 Mcg Tab, 5000 MCG PO DAILY, TAB 12/04/18 Varenicline Tartrate (Chantix) 1 Mg Tablet, 1 MG PO BID, TAB 12/04/18 Current Medications Lactated Ringer's 1,000 ml @ 0 mls/hr Q0M IV ; Start 01/03/19 at 10:00 Meds reviewed: Yes Allergies Coded Allergies: No Known Allergy (Unverified , 12/04/18) Allergies Reviewed: Yes Labs/Studies Labs Reviewed: Reviewed by anesthesiologist Result Diagram: 01/03/1992401/03/19924 Laboratory Tests 01/03/19 09:25 test: N/A Pre-procedure Exam Last vitals Vital Signs Date Temp Pulse Resp B/P (MAP) Pulse Ox O2 O2 Flow FiO2 Time Delivery Rate 01/03/19 98.5 65 18 175/83 94 Room Air 09:25 (113) Airway: Adequate mouth opening Mallampati: Mallampati I Teeth: Abnormal (Full dentures) Lung: Normal Heart: Normal ASA Physical Status ASA physical status: 3 Emergency: None Planned Anesthetic General/MAC: ETT Planned Pain Management Parenteral pain med Pre-operative Attestations Prior to commencing anesthesia and surgery, the patient was re-evaluated, there was verification of: *The patient's identity *The results of appropriate recent lab work and preoperative vital signs *The above evaluation not changing prior to induction *Anesthetic plan, risk benefits, alternative and complications discussed with patient/family; questions answered; patient/family understands, accepts and wishes to proceed. JONATHAN ESCOBEDO MD Jan 03, 2019 10:22
[2019-01-03] MEDS ORDERED: SUCCINYLCHOLINE CHLORIDE 100 MG/5 ML SYG IV ONE (10:58)
[2019-01-03] MEDS ORDERED: PROPOFOL 20 ML ONE (10:58)
[2019-01-03] MEDS ORDERED: LIDOCAINE 2% (SDV) 5 ML INJ ONE (10:58)
[2019-01-03] MEDS ORDERED: INDOMETHACIN 50 MG SUPP PR STA (11:34)
[2019-01-03] MEDS ORDERED: GLUCAGON 1 MG INJ ONE (12:11)
[2019-01-03] MEDS ORDERED: IOHEXOL 300MG/ML 30 ML BTL ONE (12:31)
--- NOTE | 2019-01-03 12:56 | OPR ---
Date/Time of Note Date/Time of Note DATE: 01/03/19 TIME: 12:50 Operative Report Preoperative Diagnosis dilated common bile duct r/o cbd stone vs neoplastic process Postoperative Diagnosis ?cbd stone 3mmand sludge removed from cbd dilated cbd Operation/Procedure Performed ercp sphincterotomy brushing of cbd cbd stone removedc sludge removed cbd stent placed Surgeon see signature line Cable Tool Operator none Anesthesia Type: general Anesthesiologist: JONATHAN ESCOBEDO MD Estimated Blood Loss: none Transfusion none Specimen none Grafts/Implants none Tubes/Drains none Complications none Pt Condition Post Procedure: stable Disposition: PACU Indications dilated cbd r/o cbd stone vs neoplastic process Procedure Description ercp sphinctewrotomy brushing of cbd small stone removed cbd stent placed AIDAN GALLARDO MD Jan 03, 2019 12:56
[2019-01-03] MEDS ORDERED: FENTAnyl 50 MCG/ML VIAL IV PRN ×3 (13:00)
[2019-01-03] MEDS ORDERED: HYDROmorphONE 1 MG/5 ML IV SYRINGE IV PRN ×3 (13:00)
[2019-01-03] MEDS ORDERED: DIPHENHYDRAMINE 50 MG INJ IV PRN (13:00)
[2019-01-03] MEDS ORDERED: EPHEDrine 25 MG/5 ML SYG IV PRN (13:00)
[2019-01-03] MEDS ORDERED: LABETALOL HCL 20MG INJ IV PRN (13:00)
[2019-01-03] MEDS ORDERED: hydrALAzine 20 MG INJ IV PRN (13:00)
[2019-01-03] MEDS ORDERED: OXYCODONE/ACETAMINOPHEN (5/325) TAB PO PRN ×2 (13:00)
[2019-01-03] MEDS ORDERED: ONDANSETRON 4 MG INJ IV PRN (13:00)
[2019-01-03] MEDS ORDERED: MIDAZOLAM 1 MG/ML 2 ML INJ IV PRN (13:00)
[2019-01-03] MEDS ORDERED: METOCLOPRAMIDE 10 MG INJ IV PRN (13:00)
[2019-01-03] MEDS ORDERED: MEPERIDINE 25 MG INJ IV PRN (13:00)
--- NOTE | 2019-01-03 13:51 | PAC ---
Date/Time of Note Date/Time of Note DATE: 01/03/19 TIME: 13:51 Post-Anesthesia Notes Post-Anesthesia Note Last documented vital signs Vital Signs Date Temp Pulse Resp B/P (MAP) Pulse Ox O2 O2 Flow FiO2 Time Delivery Rate 01/03/19 94 22 126/71 90 Room Air 13:37 (89) 01/03/19 98.3 8.0 12:55 Activity: WNL Respiratory function: WNL Cardiovascular function: WNL Mental status: Baseline Pain reasonably controlled: Yes Hydration appropriate: Yes Nausea/Vomiting absent: Yes Comments BT: 98.6 JONATHAN ESCOBEDO MD Jan 03, 2019 13:51
--- NOTE | 2019-01-04 06:12 | GILP ---
DATE OF PROCEDURE: 01/03/2019 NAME OF PROCEDURE: ERCP, sphincterotomy, removal of small stones in the common bile duct brushings a nd CBD stent placement. PREOPERATIVE DIAGNOSIS: The patient has an abnormally dilated common bile duct, and the patient is s cheduled to have a right hemicolectomy for colon cancer. Procedure at this time performed to find ou t etiology of the common bile duct dilatation and to put a CBD stent. POSTOPERATIVE DIAGNOSES: Dilated common bile duct, possible small stricture in the distal common marlene e duct and a small stone was removed, the sludge was removed and a CBD stent was placed after brushin gs. Pancreatic duct appeared normal. DESCRIPTION OF PROCEDURE: After the informed written consent was obtained, the patient was intubated by anesthesiologist, Dr. Madden. When the patient was in prone position, an Olympus video side-viewing duodenoscope was inserted into the oropharynx, then into the esophagus, subsequently into the stomac h and then into the duodenum. Ampulla was located in normal location with normal morphology. The pa ncreatic duct was initially cannulated, which appeared normal. Subsequently, the common bile duct wa s also cannulated. There is a dilatation of the common bile duct noted. There is evidence of a dist al common bile duct stricture. A small filling defect was noted in the distal common bile duct. At this time, a brush was inserted into the common bile duct, the brushings of the distal common bile du ct was done. Subsequently, sphincterotomy was performed, about an 8 mm cut of the ampulla was made w ith the help of a cutting wire of the [employer]. Following this, a balloon was inserted into the com mon bile duct. The brushing and balloon sweeping was performed. Sludge was removed. A small stone was removed. At the end of this procedure, no more filling defects were noted. At this time, a 10 x 7 [place] type of CBD stent was placed into the common bile duct across the am penny into the duodenum. Photographs were obtained. The gallbladder was visualized and the procedur e was terminated. The patient now is scheduled for a right hemicolectomy, which can be pursued. Dictated By: AIDAN MARTIN/ALL Conf#: [id number] DID#: [id number] CC: JAKE BEAL MD; ABIMAEL MARTINEZ MD;*EndCC*
== END 2019-01-03 15:10 | disposition home or self-care (01) ==
LOC: GIL 08:31 → SDS 08:31 → GIL 15:10
PROVIDERS: ATTEND Internal Medicine Gastroenterology
DX: K80.50 Calculus of bile duct without cholangitis or cholecystitis without obstruction (principal); C18.9 Malignant neoplasm of colon, unspecified; I10 Essential (primary) hypertension; E78.5 Hyperlipidemia, unspecified; E03.9 Hypothyroidism, unspecified; J44.9 Chronic obstructive pulmonary disease, unspecified; Z87.891 Personal history of nicotine dependence
CPT/HCPCS: 43264; 43274; 74330; 80053; 85025; 85610; 85730; 88104; 88305; 93005; C2617; J0360; J1610; J2405; J2765; Q9967

== ENCOUNTER → 2019-01-27 | Outpatient (CLI) | payer MEDICARE, OTHER ==
[~2019-01-27] MED LIST changes: +ADV25050 INHALATION; -CYAN500T46 PO; +VARE0.5T PO; -VARE1TAB20 PO
== END | disposition home or self-care (01) ==
LOC: VAS 15:39
PROVIDERS: ATTEND Colon & Rectal Surgery
DX: R60.9 Edema, unspecified (principal)
CPT/HCPCS: 93971